=== PATIENT | female | born 1990 | race American Indian/Alaskan Native ===

== ENCOUNTER 2016-10-20 00:28 | Emergency (ER) | payer MEDICAID ==
[2016-10-20 00:35] VITALS: BP 135/74
[2016-10-20] MEDS ORDERED: Acetaminophen/HYDROcodone 325-5 MG Tab PO ONE (00:56)
[2016-10-20] MEDS ORDERED: Clindamycin HCl 150 MG Cap PO ONE (01:00)
--- NOTE | 2016-10-20 01:13 | ER ---
DATE SEEN: 10/20/2016 CHIEF COMPLAINT: Tooth pain. HISTORY OF PRESENT ILLNESS: This is a 25-year-old female complaining of tooth pain since last evening, moderate to severe on the right upper molar area. She has taken Tylenol at home with no relief. ALLERGIES: Morphine, codeine, tramadol, amoxicillin, and penicillin. REVIEW OF SYSTEMS: Negative for any fever, sore throat, or headache. PHYSICAL EXAMINATION: GENERAL: Pleasant. VITAL SIGNS: Blood pressure is normal and temp is 98.3. ORAL: Oral examination confirmed a cavity on the right upper molar. IMPRESSION: Tooth pain. PLAN: A prescription for clindamycin was given and hydrocodone one tablet every 6 hours p.r.n. for pain. /[id number] NIKI/PARISA
== END 2016-10-20 01:11 | disposition home or self-care (01) ==
LOC: FB.ED 00:28
DX: K08.89 Other specified disorders of teeth and supporting structures (principal); Z88.0 Allergy status to penicillin; Z88.1 Allergy status to other antibiotic agents; Z88.8 Allergy status to other drugs, medicaments and biological substances; Z88.5 Allergy status to narcotic agent
CPT/HCPCS: 99282; A9270

== ENCOUNTER 2016-10-21 18:17 | Emergency (ER) | payer MEDICAID ==
[2016-10-21] MEDS ORDERED: Acetaminophen/HYDROcodone 325-5 MG Tab PO ONE (19:21)
[2016-10-21 19:36] VITALS: BP 135/77
--- NOTE | 2016-11-22 23:17 | ER ---
DATE SEEN: 10/21/2016 TIME SEEN: The patient was seen at 2240 hours. CHIEF COMPLAINT: Toothache. HISTORY OF PRESENT ILLNESS: She has recurrent intermittent toothache. Tooth #15 is causing her problem. REVIEW OF SYSTEMS: Negative. No pharyngitis. No odynophagia. No dysphagia. No hot potato throat. No sore throat. No fever. No chills. No cervical adenopathy. No neck stiffness. No difficulty breathing, shortness of breath, chest pain, or abdominal discomfort. No diarrhea, nausea, vomiting, or muscle pain or rash. PHYSICAL EXAMINATION: VITAL SIGNS: Blood pressure 122/67, heart rate 75, respirations 15, oxygen saturation 100%, and temperature is 36.9 degrees centigrade. CONSTITUTIONAL: The patient is in moderate discomfort. HEENT: She has difficulty opening and closing her mouth, but no true trismus. She says it is painful to open her mouth. Gentle percussion of tooth #15 causes pain. Minimal gingival erythema. PLAN: The patient has been on clindamycin started yesterday 300 mg t.i.d. The patient is given a prescription for Vicodin 5/325 one q.4 hours p.r.n. pain 10 tablets. Follow up with doctor in 24 to 72 hours if markedly worse, otherwise see her doctor in a week. Needs followup with a dentist. /[id number] JUAN MANUEL/PARISA
--- NOTE | 2016-12-07 22:56 | ER ---
DATE SEEN: 10/21/2016 ADDENDUM: DIAGNOSIS: #15 tooth periapical abscess. /[id number] JUAN MANUEL/PARISA
== END 2016-10-21 19:34 | disposition home or self-care (01) ==
LOC: FB.ED 18:17
DX: K04.7 Periapical abscess without sinus (principal)
CPT/HCPCS: 99282; A9270

== ENCOUNTER 2016-11-17 14:05 | Emergency (ER) | payer MEDICAID ==
--- NOTE | 2016-11-17 14:31 | EDM.PDOC ---
ED HPI GENERAL MEDICAL PROBLEM - General Stated Complaint: TOOTH ACHE Time Seen by Provider: 11/17/16 14:05 Source of Information: Reports: Patient History Limitations: Reports: No Limitations - History of Present Illness INITIAL COMMENTS - FREE TEXT/NARRATIVE: 25 y.o.f. with toothache for several days, smoker, tylenol/motrin did not help. 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: Acetaminophen, NSAIDS - Related Data Allergies Allergy/AdvReac Type Severity Reaction Status Date / Time morphine Allergy Intermediate Hives Verified 10/21/16 18:40 codeine Allergy Unknown Nausea and Verified 10/21/16 18:40 Vomiting tramadol HCl [From Ultram] Allergy Unknown Nausea and Verified 10/21/16 18:40 Vomiting amoxicillin [Amoxicillin] Allergy Hives Verified 10/21/16 18:40 Penicillins Allergy Hives Verified 10/21/16 18:40 Home Meds: Home Meds Ibuprofen [Motrin] 400 mg PO ASDIRECTED PRN 04/23/15 [History] Acetaminophen [Tylenol Extra Strength] 1,500 mg PO Q6H 01/12/16 [History] Gabapentin [Neurontin] 300 mg PO TID #21 cap 01/12/16 [Rx] Clindamycin HCl 300 mg PO TID #30 capsule 10/20/16 [Rx] FLUoxetine [PROzac] 20 mg PO DAILY 10/20/16 [History] hydrOXYzine HCl [hydrOXYzine] 25 mg PO Q6HR 10/20/16 [History] Hydrocodone/Acetaminophen [Hydrocodon-Acetaminophen 5-325] 1 each PO Q4HR PRN # 10 tablet 10/21/16 [Rx] Hydrocodone/Acetaminophen [[place] 5-325 Tablet] 1 each PO Q4H PRN #6 tablet 11/17 [Rx] Sulfamethoxazole/Trimethoprim [Bactrim Ds Tablet] 1 each PO BID #20 tablet 11/17 [Rx] Past Medical History - Past Health History Medical/Surgical History: Denies 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 Social & Family History - Family History Family Medical History: Noncontributory - Tobacco Use Smoking Status *Q: Current Every Day Smoker Years of Tobacco use: 10 Packs/Tins Daily: 0.5 Used Tobacco, but Quit: Yes Month Tobacco Last Used: 08/03/14 Second Hand Smoke Exposure: Yes - Caffeine Use Caffeine Use: Reports: Coffee, Soda - Alcohol Use Days Per Week of Alcohol Use: 0 - Recreational Drug Use Recreational Drug Use: No ED ROS ENT - Review of Systems Review Of Systems: See Below Constitutional: Reports: No Symptoms HEENT: Reports: Other (toothache) Respiratory: Reports: No Symptoms Cardiovascular: Reports: No Symptoms Endocrine: Reports: No Symptoms GI/Abdominal: Reports: No Symptoms : Reports: No Symptoms Musculoskeletal: Reports: No Symptoms Skin: Reports: No Symptoms Neurological: Reports: No Symptoms Psychiatric: Reports: No Symptoms Hematologic/Lymphatic: Reports: No Symptoms Immunologic: Reports: No Symptoms ED EXAM, ENT - Physical Exam Exam: See Below Exam Limited By: No Limitations General Appearance: Alert, WD/WN, Mild Distress Eye Exam: Bilateral Eye: Normal Inspection Ears: Normal External Exam Nose: Normal Inspection Mouth/Throat: Other (poor dentition, gingivitis) Head: Atraumatic, Normocephalic Neck: Normal Inspection, Supple, Non-Tender Respiratory/Chest: No Respiratory Distress, Lungs Clear Cardiovascular: Normal Peripheral Pulses, Regular Rate, Rhythm, No Edema GI/Abdominal: Normal Bowel Sounds, Soft, Non-Tender, No Organomegaly (Female) Exam: Deferred Rectal (Female) Exam: Deferred Back: Normal Inspection, Full Range of Motion Extremities: Normal Inspection, Normal Range of Motion Neurological: Alert, Oriented, CN II-XII Intact, Normal Cognition, Normal Gait Psychiatric: Normal Affect, Normal Mood Skin: Warm, Dry, Intact, Normal Color, No Rash Lymphatic: No Adenopathy Course - Vital Signs Text/Narrative:: 25 y.o.f. with toothache for several days, smoker, tylenol/motrin did not help. No other acute medical issues PE: Poor dentition/gingivitis Impression: Poor dentition/gingivitis Plan: D/C with instruction Departure - Departure Time of Disposition: 14:31 Disposition: Home, Self-Care 01 Condition: good Clinical Impression: Tooth ache, Gingivitis - Discharge Information Prescriptions: Hydrocodone/Acetaminophen [[place] 5-325 Tablet] 1 each PO Q4H PRN #6 tablet PRN Reason: fore severe pain only Sulfamethoxazole/Trimethoprim [Bactrim Ds Tablet] 1 each PO BID #20 tablet Referrals: Donnie Gutierrez MD [Primary Care Provider] - Additional Instructions: Please quit tobacco use, please see a dentist, please take the meds as recommended, please come back if your symptoms get worse acutely
[2016-11-17 15:51] VITALS: BP 126/76
== END 2016-11-17 14:44 | disposition home or self-care (01) ==
LOC: FB.ED 14:05
DX: K05.10 Chronic gingivitis, plaque induced (principal); K08.89 Other specified disorders of teeth and supporting structures; F17.210 Nicotine dependence, cigarettes, uncomplicated; Z88.5 Allergy status to narcotic agent; Z88.0 Allergy status to penicillin; Z88.1 Allergy status to other antibiotic agents; Z79.899 Other long term (current) drug therapy
CPT/HCPCS: 99282

== ENCOUNTER 2016-11-18 13:10 | Emergency (ER) | payer MEDICAID ==
[2016-11-18 13:28] VITALS: BP 121/61
--- NOTE | 2016-11-18 14:00 | EDM.PDOC ---
ED HPI GENERAL MEDICAL PROBLEM - General Chief Complaint: General Stated Complaint: TOOTH PAIN Time Seen by Provider: 11/18/16 13:30 Source of Information: Reports: Patient History Limitations: Reports: No Limitations - History of Present Illness INITIAL COMMENTS - FREE TEXT/NARRATIVE: c/o tooth pain pt in ED yesterday with tooth pain, tx with Bactim and Lortab 5/325, still having pain yet no secondary evidence of infection has filled 6 controlled meds in 2017 alone, including gabapentin which pt did not tell RN or myself that she was taking pt has h/o of drug seeking behavior has apt with dentist in 2d there is a central cavity on tooth #31, will give additional coverage for anaerobes 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: Acetaminophen, NSAIDS, Other Medication(s) Right Upper Posterior Tooth/Teeth Pain Score (Numeric/FACES): 7 - Related Data Allergies Allergy/AdvReac Type Severity Reaction Status Date / Time morphine Allergy Intermediate Hives Verified 11/18/16 13:28 codeine Allergy Unknown Nausea and Verified 11/18/16 13:28 Vomiting tramadol HCl [From Ultram] Allergy Unknown Nausea and Verified 11/18/16 13:28 Vomiting amoxicillin [Amoxicillin] Allergy Hives Verified 11/18/16 13:28 Penicillins Allergy Hives Verified 11/18/16 13:28 Home Meds: Home Meds Ibuprofen [Motrin] 400 mg PO ASDIRECTED PRN 04/23/15 [History] Acetaminophen [Tylenol Extra Strength] 1,500 mg PO Q6H 01/12/16 [History] Hydrocodone/Acetaminophen [[place] 5-325 Tablet] 1 each PO Q4H PRN #6 tablet 11/17 [Rx] Sulfamethoxazole/Trimethoprim [Bactrim Ds Tablet] 1 each PO BID #20 tablet 11/17 [Rx] Gabapentin [Gabapentin] 300 mg PO QID 11/18/16 [History] Metronidazole [IJD: metroNIDAZOLE] 250 mg PO TID #21 tab 11/18/16 [Rx] Past Medical History - Past Health History Medical/Surgical History: Denies 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 Social & Family History - Family History Family Medical History: Noncontributory - Tobacco Use Smoking Status *Q: Current Every Day Smoker Years of Tobacco use: 10 Packs/Tins Daily: 0.1 Used Tobacco, but Quit: Yes Month Tobacco Last Used: 08/03/14 Second Hand Smoke Exposure: Yes - Caffeine Use Caffeine Use: Reports: Soda - Alcohol Use Days Per Week of Alcohol Use: 0 - Recreational Drug Use Recreational Drug Use: No ED ROS GENERAL - Review of Systems Review Of Systems: See Below Constitutional: Reports: No Symptoms HEENT: Reports: Other (dental pain) Respiratory: Reports: No Symptoms Cardiovascular: Reports: No Symptoms Endocrine: Reports: No Symptoms GI/Abdominal: Reports: No Symptoms : Reports: No Symptoms Musculoskeletal: Reports: No Symptoms Skin: Reports: No Symptoms Neurological: Reports: No Symptoms Psychiatric: Reports: No Symptoms Hematologic/Lymphatic: Reports: No Symptoms Immunologic: Reports: No Symptoms ED EXAM, GENERAL - Physical Exam Exam: See Below Exam Limited By: No Limitations General Appearance: Alert, WD/WN, No Apparent Distress Throat/Mouth: Other (tooth #31 with central cavity, no red or swell or tender on palpating gingiva, no face swell, no submandibular LNs, perhaps slight tender on percussing tooth) Course - Vital Signs Last Recorded V/S: Last Vital Signs Temp 36.8 C 11/18/16 13:21 Pulse 64 11/18/16 13:21 Resp 14 11/18/16 13:21 BP 121/61 11/18/16 13:21 Pulse Ox 100 11/18/16 13:21 Departure - Departure Time of Disposition: 13:58 Disposition: DC/Tfer to [facility] Preliminary Cause of *Q: sepsis & multi system organ failure Condition: good Clinical Impression: Dental caries extending into pulp, Dental abscess - Discharge Information Prescriptions: Metronidazole [IJD: metroNIDAZOLE] 250 mg PO TID #21 tab Instructions: Dental Abscess Forms: ED Department Discharge Additional Instructions: Continue current meds including Bactrim DS. Take ibuprofen 600 mg 4 times a day. For infection, add the antibiotic metronidazole 250 mg 2 tabs 3 times today, then 1 tab 3 times a day for 5 more days. See your dentist in 2 days. Use ice packs for 10 minutes every2 hours as needed.
== END 2016-11-18 14:06 | disposition home or self-care (01) ==
LOC: FB.ED 13:10
DX: K04.7 Periapical abscess without sinus (principal); K02.9 Dental caries, unspecified; F17.210 Nicotine dependence, cigarettes, uncomplicated; Z88.6 Allergy status to analgesic agent; Z88.8 Allergy status to other drugs, medicaments and biological substances; Z88.0 Allergy status to penicillin; Z88.1 Allergy status to other antibiotic agents; Z79.899 Other long term (current) drug therapy
CPT/HCPCS: 99282

== ENCOUNTER 2016-11-20 16:40 | Emergency (ER) | payer MEDICAID ==
[2016-11-20] MEDS ORDERED: Bupivacaine 0.5%/EPINEPHrine 1:200,000 50 ML MDV NERVRT ONE ×2 (17:07)
--- NOTE | 2016-11-20 17:18 | EDM.PDOC ---
ED HPI GENERAL MEDICAL PROBLEM - General Chief Complaint: ENT Problem Stated Complaint: TOOTH ACHE Time Seen by Provider: 11/20/16 17:05 Source of Information: Reports: Patient, Old Records History Limitations: Reports: No Limitations - History of Present Illness INITIAL COMMENTS - FREE TEXT/NARRATIVE: 25 yo female returns for dental pain. Has been here now 3 times in 4 days. States today that she is seeing a dentist tomorrow. Has claimed on her last visit that today was the day of her appt. Says she missed that due to an appt her son had in [place] for ADD. Is on metronidazole, Bactrim and is now out of her hydrocodone. No fever. Not getting relief from Ambesol OTC. 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: NSAIDS, Other Medication(s) (ATB's, [place], Ambesol) Rt upper front tooth Pain Score (Numeric/FACES): 10 - Related Data Allergies Allergy/AdvReac Type Severity Reaction Status Date / Time morphine Allergy Intermediate Hives Verified 11/20/16 16:51 codeine Allergy Unknown Nausea and Verified 11/20/16 16:51 Vomiting tramadol HCl [From Ultram] Allergy Unknown Nausea and Verified 11/20/16 16:51 Vomiting amoxicillin [Amoxicillin] Allergy Hives Verified 11/20/16 16:51 Penicillins Allergy Hives Verified 11/20/16 16:51 Home Meds: Home Meds Ibuprofen [Motrin] 400 mg PO ASDIRECTED PRN 04/23/15 [History] Acetaminophen [Tylenol Extra Strength] 1,500 mg PO Q6H 01/12/16 [History] Sulfamethoxazole/Trimethoprim [Bactrim Ds Tablet] 1 each PO BID #20 tablet 11/17 [Rx] Gabapentin [Gabapentin] 300 mg PO QID 11/18/16 [History] Metronidazole [IJD: metroNIDAZOLE] 250 mg PO TID #21 tab 11/18/16 [Rx] Past Medical History - Past Health History Medical/Surgical History: Denies Medical/Surgical History 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 Social & Family History - Family History Family Medical History: Noncontributory - Tobacco Use Smoking Status *Q: Never Smoker Years of Tobacco use: 10 Packs/Tins Daily: 0.1 Used Tobacco, but Quit: Yes Month Tobacco Last Used: 08/03/14 Second Hand Smoke Exposure: Yes - Caffeine Use Caffeine Use: Reports: Coffee, Soda - Alcohol Use Days Per Week of Alcohol Use: 0 - Recreational Drug Use Recreational Drug Use: No ED ROS ENT - Review of Systems Review Of Systems: See Below Constitutional: Reports: No Symptoms HEENT: Reports: Dental Pain Respiratory: Reports: No Symptoms Cardiovascular: Reports: No Symptoms GI/Abdominal: Reports: No Symptoms : Reports: No Symptoms Skin: Reports: No Symptoms Neurological: Reports: No Symptoms Psychiatric: Reports: No Symptoms ED EXAM, ENT - Physical Exam Exam: See Below Exam Limited By: No Limitations General Appearance: Alert, WD/WN, No Apparent Distress Eye Exam: Bilateral Eye: Normal Inspection, PERRL Ears: Normal External Exam, Normal Canal, Hearing Grossly Normal, Normal TMs Nose: Normal Inspection, Normal Mucousa, No Blood Mouth/Throat: Normal Gums, Normal Lips, Normal Oropharynx, Dental Pain, Dental Tenderness, Other (large cavity over R upper premolar, this is the painful tooth. ) Head: Atraumatic, Normocephalic Neck: Normal Inspection, Supple, Non-Tender, Full Range of Motion Respiratory/Chest: No Respiratory Distress, No Accessory Muscle Use Cardiovascular: Other Neurological: Alert, Oriented, CN II-XII Intact, Normal Cognition, No Motor/ Sensory Deficits Psychiatric: Normal Affect, Normal Mood Skin: Warm, Dry, Intact, Normal Color, No Rash Lymphatic: No Adenopathy Course - Vital Signs Text/Narrative:: Anesth locally with 0.5% bupivacaine with epi x 5 ml with good relief. Last Recorded V/S: Last Vital Signs Temp 36.7 C 11/20/16 16:40 Pulse 89 11/20/16 16:40 Resp 14 11/20/16 16:40 BP 134/67 11/20/16 16:40 Pulse Ox 100 11/20/16 16:40 - Orders/Labs/Meds Meds: Medications Discontinued Medications Generic Name Dose Route Start Last Admin Trade Name Vania PRN Reason Stop Dose Admin Bupivacaine HCl/Epinephrine Bitart 50 ml 11/20/16 17:07 Marcaine 0.5%/Epinephrine 1:200,000 NERVRT 11/20/16 17:08 ONETIME ONE Departure - Departure Time of Disposition: 17:45 Disposition: Home, Self-Care 01 Condition: good Clinical Impression: Pain due to dental caries Clinical Impression: (Ruled Out): Pain, dental - Discharge Information Referrals: Donnie Gutierrez MD [Primary Care Provider] - Forms: ED Department Discharge Additional Instructions: See your dentist [facility]. See your family doctor in the interim if pain meds are needed. May take ibuprofen 600 mg every 6 hrs and acetaminophen 1000 mg every 6hrs for pain relief. Continue metronidazole.
[2016-11-20 17:48] VITALS: BP 139/76
== END 2016-11-20 17:50 | disposition home or self-care (01) ==
LOC: FB.ED 16:40
DX: K02.9 Dental caries, unspecified (principal); Z87.891 Personal history of nicotine dependence; Z88.0 Allergy status to penicillin; Z88.1 Allergy status to other antibiotic agents; Z88.5 Allergy status to narcotic agent; Z88.6 Allergy status to analgesic agent; Z98.890 Other specified postprocedural states
CPT/HCPCS: 99282

== ENCOUNTER 2016-11-21 22:31 | Emergency (ER) | payer MEDICAID ==
[2016-11-21] MEDS ORDERED: Acetaminophen/HYDROcodone 325-10 MG Tab PO ONE ×2 (22:50→23:00)
[2016-11-21 22:51] VITALS: BP 135/65
--- NOTE | 2016-11-22 04:42 | ER ---
DATE SEEN: 11/21/2016 CHIEF COMPLAINT: Tooth pain. HISTORY OF PRESENT ILLNESS: A 25-year-old female with recurrent tooth pain which has been at least three times in the last one week. Pain is moderate to severe. It is in the right upper molar area. I saw on the 20 of October with similar symptoms. She is currently taking antibiotics. Denies fever or chills. On the , Dr. Chiu, did a nerve block which seemed to have helped for a few days. REVIEW OF SYSTEMS: No sore throat. No fever. No headaches. MEDICATIONS: Reviewed. ALLERGIES: Listed. PHYSICAL EXAMINATION: VITAL SIGNS: Blood pressure and temperature normal. HEENT: Head normal size. Neck is supple. Oropharynx is clear. Teeth revealed dental abscess on the right tooth #15. IMPRESSION: Dental abscess. PLAN: One tablet of hydrocodone every 8 hours, three tablets only. She is advised to see a dentist tomorrow. /[id number] NIKI/PARISA
== END 2016-11-21 23:00 | disposition home or self-care (01) ==
LOC: FB.ED 22:31
DX: K04.7 Periapical abscess without sinus (principal)
CPT/HCPCS: 99282; A9270

== ENCOUNTER 2016-12-09 15:31 | Emergency (ER) | payer MEDICAID ==
[2016-12-09 15:49] VITALS: BP 127/59
--- NOTE | 2016-12-11 17:37 | ER ---
DATE SEEN: 12/09/2016 HISTORY OF PRESENT ILLNESS: The patient is a 25-year-old female, who presents with right tooth pain. She states that yesterday, she was at [facility] and had one of her upper molars removed, right-sided. Today, she is having more pain in that region. She states she has been taking ibuprofen on a regular basis without benefit. She was also prescribed clindamycin, which she says she has been taking. She denies any fever, chills, nausea, vomiting, or diarrhea. MEDICATIONS: 1. Ibuprofen. 2. Clindamycin. 3. Klonopin. 4. Prozac. 5. Gabapentin. 6. Acetaminophen. ALLERGIES: Morphine, codeine, tramadol, amoxicillin, penicillin. PAST MEDICAL HISTORY: Carpal tunnel syndrome, dental pain, toothache, abdominal pain, back pain, and drug-seeking behavior. REVIEW OF SYSTEMS: RESPIRATORY: No shortness of breath. PHYSICAL EXAMINATION: VITAL SIGNS: Temperature 36.8, pulse 68, blood pressure 127/59, mean blood pressure 81, respiratory rate 18, and 100% on room air. GENERAL: She is in no apparent acute distress. HEENT: Oropharyngeal region shows loose tooth with minimal amount of bleeding from the socket. No abscess or significant swelling appreciated. Full range of motion in her mouth. NECK: Supple. ASSESSMENT: Dental decay, tooth pain. PLAN: Continue current medications. We will prescribe pain medication to help with her breakthrough pain. /[id number] MARIJA/PARISA
== END 2016-12-09 15:55 | disposition home or self-care (01) ==
LOC: FB.ED 15:31
DX: K02.9 Dental caries, unspecified (principal); Z88.5 Allergy status to narcotic agent; Z88.0 Allergy status to penicillin; Z88.1 Allergy status to other antibiotic agents; Z88.8 Allergy status to other drugs, medicaments and biological substances
CPT/HCPCS: 99282

== ENCOUNTER 2017-02-20 18:49 | Emergency (ER) | payer MEDICAID ==
[2017-02-20] MEDS ORDERED: Ketorolac 60 MG/2 ML SDV IM ONE (19:18)
--- NOTE | 2017-02-20 19:19 | EDM.PDOC ---
ED HPI GENERAL MEDICAL PROBLEM - General Chief Complaint: ENT Problem Stated Complaint: TOOTHACHE Time Seen by Provider: 02/20/17 19:10 Source of Information: Reports: Patient History Limitations: Reports: No Limitations - History of Present Illness INITIAL COMMENTS - FREE TEXT/NARRATIVE: 26 yo female returns again for dental pain. Has been her multiple times in recent months. 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: Reports: Other (see below) (none) - Related Data Allergies Allergy/AdvReac Type Severity Reaction Status Date / Time morphine Allergy Intermediate Hives Verified 12/09/16 15:38 codeine Allergy Unknown Nausea and Verified 12/09/16 15:38 Vomiting tramadol HCl [From Ultram] Allergy Unknown Nausea and Verified 12/09/16 15:38 Vomiting amoxicillin [Amoxicillin] Allergy Hives Verified 12/09/16 15:38 Penicillins Allergy Hives Verified 12/09/16 15:38 Home Meds: Home Meds Ibuprofen [Motrin] 400 mg PO ASDIRECTED PRN 04/23/15 [History] Acetaminophen [Tylenol Extra Strength] 1,500 mg PO Q6H 01/12/16 [History] Gabapentin [Gabapentin] 300 mg PO QID 11/18/16 [History] Acetaminophen/HYDROcodone [[place] 325-5 MG] 1 tab PO Q4H PRN #8 tab 12/09/16 [Rx] ClonazePAM [KlonoPIN] 0.5 mg PO BID 12/09/16 [History] FLUoxetine [PROzac] 40 mg PO DAILY 12/09/16 [History] Past Medical History - Past Health History Medical/Surgical History: Denies 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 Social & Family History - Family History Family Medical History: Noncontributory - Tobacco Use Smoking Status *Q: Current Every Day Smoker Years of Tobacco use: 10 Packs/Tins Daily: 1 Used Tobacco, but Quit: Yes Month Tobacco Last Used: 08/03/14 Second Hand Smoke Exposure: Yes - Caffeine Use Caffeine Use: Reports: None - Alcohol Use Days Per Week of Alcohol Use: 0 - Recreational Drug Use Recreational Drug Use: No ED ROS ENT - Review of Systems Review Of Systems: See Below Constitutional: Reports: No Symptoms HEENT: Reports: Dental Pain Respiratory: Reports: No Symptoms Cardiovascular: Reports: No Symptoms GI/Abdominal: Reports: No Symptoms Skin: Reports: No Symptoms Neurological: Reports: No Symptoms ED EXAM, ENT - Physical Exam Exam: See Below Exam Limited By: No Limitations General Appearance: Alert, WD/WN, No Apparent Distress Eye Exam: Bilateral Eye: Normal Inspection Ears: Normal Canal, Hearing Grossly Normal Nose: Normal Inspection, Normal Mucousa, No Blood Mouth/Throat: Normal Inspection, Normal Lips, Normal Oropharynx, Dental Pain, Other (Broken molar L mandible. ). No: Hoarse Voice Head: Atraumatic, Normocephalic Neck: Normal Inspection, Supple, Non-Tender Respiratory/Chest: No Respiratory Distress, No Accessory Muscle Use Cardiovascular: Regular Rate, Rhythm Neurological: Alert, Oriented, Normal Cognition, No Motor/Sensory Deficits Psychiatric: Normal Affect, Normal Mood Skin: Warm, Dry, Intact, Normal Color, No Rash Lymphatic: No Adenopathy Course - Vital Signs Text/Narrative:: Offered a nerve block, initially accepted the idea, later declined the offer. - Orders/Labs/Meds Meds: Medications Discontinued Medications Generic Name Dose Route Start Last Admin Trade Name Vania PRN Reason Stop Dose Admin Ketorolac Tromethamine 60 mg 02/20/17 19:18 Toradol IM 02/20/17 19:19 ONETIME ONE Departure - Departure Time of Disposition: 19:40 Disposition: Home, Self-Care 01 Condition: Good Clinical Impression: Pain, dental - Discharge Information Referrals: Donnie Gutierrez MD [Primary Care Provider] - Care Plan Goals: Take acetaminophen 1000 mg every 6 hrs as needed for pain relief. After 1 am tonight you may also add ibuprofen 600 mg every 6 hrs with food for added pain relief. See your dentist tomorrow for recheck.
[2017-02-20] MEDS ORDERED: Ketorolac 10 MG Tab PO ONE (19:28)
[2017-02-20 20:58] VITALS: BP 132/73
== END 2017-02-20 19:42 | disposition home or self-care (01) ==
LOC: FB.ED 18:49
DX: K08.89 Other specified disorders of teeth and supporting structures (principal); F17.210 Nicotine dependence, cigarettes, uncomplicated; Z88.5 Allergy status to narcotic agent; Z88.6 Allergy status to analgesic agent; Z88.1 Allergy status to other antibiotic agents; Z88.0 Allergy status to penicillin; Z79.899 Other long term (current) drug therapy; Z98.890 Other specified postprocedural states
CPT/HCPCS: 96372; 99282; A9270; J1885

== ENCOUNTER 2017-05-04 18:33 | Emergency (ER) | payer MEDICAID ==
[2017-05-04] MEDS ORDERED: Clindamycin HCl 150 MG Cap PO ONE (19:28)
[2017-05-04] MEDS ORDERED: Ketorolac 60 MG/2 ML SDV IM ONE (19:29)
--- NOTE | 2017-05-04 19:35 | EDM.PDOC ---
ED HPI GENERAL MEDICAL PROBLEM - General Chief Complaint: ENT Problem Stated Complaint: TOOTH PAIN Time Seen by Provider: 05/04/17 19:20 Source of Information: Reports: Patient History Limitations: Reports: No Limitations - History of Present Illness INITIAL COMMENTS - FREE TEXT/NARRATIVE: c/o tooth pain pain at #18 x several days, worse today, took APAP without benefit, packed it with Oragel white paste that did not help, no swelling, no f/c/d 9 visits to ED for dental pain in past 8m here, he is off work in 3d on Sunday and says he will take her to [facility] then Left Lower Tooth/Teeth Pain Score (Numeric/FACES): 10 - Related Data Allergies Allergy/AdvReac Type Severity Reaction Status Date / Time morphine Allergy Intermediate Hives Verified 05/04/17 19:04 codeine Allergy Unknown Nausea and Verified 05/04/17 19:04 Vomiting tramadol HCl [From Ultram] Allergy Unknown Nausea and Verified 05/04/17 19:04 Vomiting amoxicillin [Amoxicillin] Allergy Hives Verified 05/04/17 19:04 Penicillins Allergy Hives Verified 05/04/17 19:04 Home Meds: Home Meds Ibuprofen [Motrin] 400 mg PO ASDIRECTED PRN 04/23/15 [History] Acetaminophen [Tylenol Extra Strength] 1,500 mg PO Q6H 01/12/16 [History] Gabapentin [Gabapentin] 300 mg PO QID 11/18/16 [History] ClonazePAM [KlonoPIN] 0.5 mg PO BID 12/09/16 [History] FLUoxetine [PROzac] 40 mg PO DAILY 12/09/16 [History] Clindamycin HCl [Cleocin HCl] 300 mg PO TID #21 capsule 05/04/17 [Rx] Past Medical History - Past Health History Medical/Surgical History: Denies Medical/Surgical History HEENT History: Reports: Impaired Vision Other HEENT History: wears glasses 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 Social & Family History - Family History Family Medical History: Noncontributory - Tobacco Use Smoking Status *Q: Never Smoker Years of Tobacco use: 10 Packs/Tins Daily: 0.1 Used Tobacco, but Quit: Yes Month Tobacco Last Used: 08/03/14 Second Hand Smoke Exposure: No - Caffeine Use Caffeine Use: Reports: Soda - Alcohol Use Days Per Week of Alcohol Use: 0 - Recreational Drug Use Recreational Drug Use: No ED ROS GENERAL - Review of Systems Review Of Systems: See Below Constitutional: Reports: No Symptoms HEENT: Reports: Dental Pain Respiratory: Reports: No Symptoms Cardiovascular: Reports: No Symptoms Endocrine: Reports: No Symptoms GI/Abdominal: Reports: No Symptoms : Reports: No Symptoms Musculoskeletal: Reports: No Symptoms Skin: Reports: No Symptoms Neurological: Reports: No Symptoms Psychiatric: Reports: No Symptoms Hematologic/Lymphatic: Reports: No Symptoms Immunologic: Reports: No Symptoms ED EXAM, DIZZINESS - Physical Exam Exam: See Below Exam Limited By: No Limitations General Appearance: Alert, WD/WN, Mild Distress Throat/Mouth: Other (no swell of cheek or gingiva, no cervical LNs, tooth #18 with white packing, mild tender to palpation of tooth, mandible NT) Neck: Normal Inspection, Supple, Non-Tender Course - Vital Signs Last Recorded V/S: Last Vital Signs Temp 36.1 C 05/04/17 19:07 Pulse 100 05/04/17 19:07 Resp 20 05/04/17 19:07 BP 134/74 05/04/17 19:07 Pulse Ox 97 05/04/17 19:07 - Orders/Labs/Meds Orders: Active Orders 24 hr Category Date Time Status Clindamycin HCl [Cleocin] Med 05/04/17 19:28 Once 300 mg PO ONETIME ONE Ketorolac [Toradol] Med 05/04/17 19:29 Once 60 mg IM ONETIME ONE - Re-Assessments/Exams Free Text/Narrative Re-Assessment/Exam: 05/04/17 19:33 dental pain, possible abscess given large erosion centrally and medially on biting surface Departure - Departure Time of Disposition: 19:33 Disposition: Home, Self-Care 01 Condition: Good Clinical Impression: Pain due to dental caries - Discharge Information Prescriptions: Clindamycin HCl [Cleocin HCl] 300 mg PO TID #21 capsule Referrals: Donnie Gutierrez MD [Primary Care Provider] - Additional Instructions: For infection, take clindamycin 300 mg 1 capsule 3 times a day for 7 days. For pain and inflammation, take ibuprofen 200 mg 3 tabs and acetaminophen 500 mg 2 tabs 4 times a day for 2 days, longer if needed. Eat soft food. Chew on the opposite side of the mouth. Use cool food and liquids. See your dentist in 3 days. - My Orders Last 24 Hours: My Active Orders 05/04/17 19:28 Clindamycin HCl [Cleocin] 300 mg PO ONETIME ONE 05/04/17 19:29 Ketorolac [Toradol] 60 mg IM ONETIME ONE - Assessment/Plan Last 24 Hours: My Active Orders 05/04/17 19:28 Clindamycin HCl [Cleocin] 300 mg PO ONETIME ONE 05/04/17 19:29 Ketorolac [Toradol] 60 mg IM ONETIME ONE
[2017-05-04 19:44] VITALS: BP 134/78
== END 2017-05-04 19:42 | disposition home or self-care (01) ==
LOC: FB.ED 18:33
DX: K02.9 Dental caries, unspecified (principal); Z87.891 Personal history of nicotine dependence; Z79.899 Other long term (current) drug therapy; Z88.5 Allergy status to narcotic agent; Z88.0 Allergy status to penicillin; Z88.1 Allergy status to other antibiotic agents
CPT/HCPCS: 96372; 99282; A9270; J1885

== ENCOUNTER 2017-06-17 15:57 | Emergency (ER) | payer MEDICAID ==
--- NOTE | 2017-06-17 16:06 | EDM.PDOC ---
ED HPI GENERAL MEDICAL PROBLEM - General Stated Complaint: RASH ON HAND, LEGS AND FACE FROM FIBERGLASS Time Seen by Provider: 06/17/17 15:57 Source of Information: Reports: Patient - Related Data Allergies Allergy/AdvReac Type Severity Reaction Status Date / Time morphine Allergy Intermediate Hives Verified 06/17/17 16:16 codeine Allergy Unknown Nausea and Verified 06/17/17 16:16 Vomiting tramadol HCl [From Ultram] Allergy Unknown Nausea and Verified 06/17/17 16:16 Vomiting amoxicillin [Amoxicillin] Allergy Hives Verified 06/17/17 16:16 Penicillins Allergy Hives Verified 06/17/17 16:16 Home Meds: Home Meds Ibuprofen [Motrin] 400 mg PO ASDIRECTED PRN 04/23/15 [History] Acetaminophen [Tylenol Extra Strength] 1,500 mg PO Q6H 01/12/16 [History] Gabapentin [Gabapentin] 300 mg PO QID 11/18/16 [History] ClonazePAM [KlonoPIN] 0.5 mg PO BID 12/09/16 [History] FLUoxetine [PROzac] 40 mg PO DAILY 12/09/16 [History] Past Medical History - Past Health History Medical/Surgical History: Denies Medical/Surgical History HEENT History: Reports: Impaired Vision Other 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 Social & Family History - Family History Family Medical History: Noncontributory - Tobacco Use Smoking Status *Q: Never Smoker Years of Tobacco use: 10 Packs/Tins Daily: 0.1 Used Tobacco, but Quit: Yes Month Tobacco Last Used: 08/03/14 Second Hand Smoke Exposure: No - Caffeine Use Caffeine Use: Reports: Soda - Alcohol Use Days Per Week of Alcohol Use: 0 - Recreational Drug Use Recreational Drug Use: No Course - Vital Signs Text/Narrative:: Impression: Urticaria Last Recorded V/S: Last Vital Signs Temp 36.7 C 06/17/17 16:00 Pulse 108 H 06/17/17 16:00 Resp 18 06/17/17 16:00 BP 133/75 06/17/17 16:00 Pulse Ox 100 06/17/17 16:00 Departure - Departure Time of Disposition: 16:04 Disposition: Home, Self-Care 01 Condition: Good Clinical Impression: Urticaria - Discharge Information Instructions: Rash, Hives, [id number] Referrals: Donnie Gutierrez MD [Primary Care Provider] - Additional Instructions: Please take Vistaril as recommended, please increase water intake, please f/u, come back if your symptoms get worse acutely
[2017-06-17 16:43] VITALS: BP 132/76
--- NOTE | 2017-06-17 16:53 | EDM.PDOC ---
ED HPI GENERAL MEDICAL PROBLEM - General Chief Complaint: Skin Complaint Stated Complaint: RASH ON HAND, LEGS AND FACE FROM FIBERGLASS Time Seen by Provider: 06/17/17 15:57 Source of Information: Reports: Patient History Limitations: Reports: No Limitations - History of Present Illness INITIAL COMMENTS - FREE TEXT/NARRATIVE: 26 y.o.w.f came to to the ed 2 days after she was exposed to fiber glass. Pt took Benadryl with little improvement. No N/V/D, no SOB. 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) - Related Data Allergies Allergy/AdvReac Type Severity Reaction Status Date / Time morphine Allergy Intermediate Hives Verified 06/17/17 16:16 codeine Allergy Unknown Nausea and Verified 06/17/17 16:16 Vomiting tramadol HCl [From Ultram] Allergy Unknown Nausea and Verified 06/17/17 16:16 Vomiting amoxicillin [Amoxicillin] Allergy Hives Verified 06/17/17 16:16 Penicillins Allergy Hives Verified 06/17/17 16:16 Home Meds: Home Meds Ibuprofen [Motrin] 400 mg PO ASDIRECTED PRN 04/23/15 [History] Acetaminophen [Tylenol Extra Strength] 1,500 mg PO Q6H 01/12/16 [History] Gabapentin [Gabapentin] 300 mg PO QID 11/18/16 [History] ClonazePAM [KlonoPIN] 0.5 mg PO BID 12/09/16 [History] FLUoxetine [PROzac] 40 mg PO DAILY 12/09/16 [History] Past Medical History - Past Health History Medical/Surgical History: Denies Medical/Surgical History HEENT History: Reports: Impaired Vision Other HEENT History: 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 Social & Family History - Family History Family Medical History: Noncontributory - Tobacco Use Smoking Status *Q: Never Smoker Years of Tobacco use: 10 Packs/Tins Daily: 0.1 Used Tobacco, but Quit: Yes Month Tobacco Last Used: 08/03/14 Second Hand Smoke Exposure: No - Caffeine Use Caffeine Use: Reports: Coffee, Soda, Tea - Alcohol Use Days Per Week of Alcohol Use: 0 - Recreational Drug Use Recreational Drug Use: No ED ROS GENERAL - Review of Systems Review Of Systems: See Below Constitutional: Reports: No Symptoms HEENT: Reports: No Symptoms Respiratory: Reports: No Symptoms Cardiovascular: Reports: No Symptoms Endocrine: Reports: No Symptoms GI/Abdominal: Reports: No Symptoms : Reports: No Symptoms Musculoskeletal: Reports: No Symptoms Skin: Reports: Urticaria Neurological: Reports: No Symptoms Psychiatric: Reports: No Symptoms Hematologic/Lymphatic: Reports: No Symptoms Immunologic: Reports: No Symptoms ED EXAM, SKIN/RASH Exam: See Below Exam Limited By: No Limitations General Appearance: Alert, WD/WN, Mild Distress, Obese Eye Exam: Bilateral Eye: Normal Inspection Ears: Normal External Exam Nose: Normal Inspection Throat/Mouth: Normal Inspection Head: Atraumatic, Normocephalic Neck: Normal Inspection, Supple, Non-Tender, Full Range of Motion Respiratory/Chest: No Respiratory Distress, Lungs Clear, Normal Breath Sounds, No Accessory Muscle Use Cardiovascular: Normal Peripheral Pulses, Regular Rate, Rhythm, No Edema, No JVD Peripheral Pulses: 1+: Radial (R) GI/Abdominal: Normal Bowel Sounds, Soft (Female) Exam: Deferred Rectal (Female) Exam: Deferred Back Exam: Normal Inspection, Full Range of Motion Extremities: Normal Inspection, Normal Range of Motion, Non-Tender, No Pedal Edema Neurological: Alert, Oriented, CN II-XII Intact, Normal Cognition, Normal Gait, Normal Reflexes, No Motor/Sensory Deficits Psychiatric: Normal Affect, Normal Mood Skin: Rash (urticaria) Location, Skin: Generalized Characteristics: Urticarial Lymphatic: No Adenopathy Course - Vital Signs Text/Narrative:: 26 y.o.w.f came to to the ed 2 days after she was exposed to fiber glass. Pt took Benadryl with little improvement. No N/V/D, no SOB. No other acute medical issues BP 137/75 RR 18 Pulse ox 100% temp 36.7 PE: urticarial rash Impression: Urticaria Tx: vistaril to tke home. Pt has no ride. Plan: D/C with instructions Last Recorded V/S: Last Vital Signs Temp 36.8 C 06/17/17 16:40 Pulse 102 H 06/17/17 16:40 Resp 16 06/17/17 16:40 BP 132/76 06/17/17 16:40 Pulse Ox 100 06/17/17 16:40 Departure - Departure Time of Disposition: 16:47 Disposition: Home, Self-Care 01 Clinical Impression: Urticaria - Discharge Information Instructions: Rash, Hives, [id number] Referrals: Donnie Gutierrez MD [Primary Care Provider] - Forms: ED Department Discharge Additional Instructions: Please take Vistaril as recommended, please increase water intake, please f/u, come back if your symptoms get worse acutely
== END 2017-06-17 16:40 | disposition home or self-care (01) ==
LOC: FB.ED 15:57
DX: L50.9 Urticaria, unspecified (principal); F32.9 Major depressive disorder, single episode, unspecified; Z88.5 Allergy status to narcotic agent; Z88.1 Allergy status to other antibiotic agents; Z88.0 Allergy status to penicillin; Z79.899 Other long term (current) drug therapy
CPT/HCPCS: 99282; A9270

== ENCOUNTER 2017-09-12 11:47 | Emergency (ER) | payer MEDICAID ==
[2017-09-12 12:35] VITALS: BP 131/76
--- NOTE | 2017-09-12 12:55 | EDM.PDOC ---
ED HPI GENERAL MEDICAL PROBLEM - General Chief Complaint: General Stated Complaint: DENTAL PAIN Time Seen by Provider: 09/12/17 12:35 Source of Information: Reports: Patient History Limitations: Reports: No Limitations - History of Present Illness INITIAL COMMENTS - FREE TEXT/NARRATIVE: Ning reports pain in the L upper maxillae following dental extraction of molar in [place] yesterday. She reports throbbing pain, minimal bleeding, and no swelling. She has tried Ibuprofen and Tylenol for pain relief this am. She has not called the DDS or seen her PCP. Tooth/Teeth Pain Score (Numeric/FACES): 8 - Related Data Allergies Allergy/AdvReac Type Severity Reaction Status Date / Time morphine Allergy Intermediate Hives Verified 09/12/17 12:31 codeine Allergy Unknown Nausea and Verified 09/12/17 12:31 Vomiting tramadol HCl [From Ultram] Allergy Unknown Nausea and Verified 09/12/17 12:31 Vomiting amoxicillin [Amoxicillin] Allergy Hives Verified 09/12/17 12:31 Penicillins Allergy Hives Verified 09/12/17 12:31 Home Meds: Home Meds Ibuprofen [Motrin] 400 mg PO ASDIRECTED PRN 04/23/15 [History] Acetaminophen [Tylenol Extra Strength] 1,500 mg PO Q6H 01/12/16 [History] Gabapentin [Gabapentin] 300 mg PO QID 11/18/16 [History] ClonazePAM [KlonoPIN] 0.5 mg PO BID 12/09/16 [History] PARoxetine HCl [Paroxetine HCl] 10 mg PO DAILY 09/12/17 [History] buPROPion [Wellbutrin] 75 mg PO DAILY 09/12/17 [History] Past Medical History - Past Health History Medical/Surgical History: Denies Medical/Surgical History HEENT History: Reports: Impaired Vision, Other (See Below) Other HEENT History: 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 Social & Family History - Family History Family Medical History: Noncontributory - Tobacco Use Smoking Status *Q: Never Smoker Years of Tobacco use: 10 Packs/Tins Daily: 0.1 Used Tobacco, but Quit: Yes Month/Year Tobacco Last Used: 08/03/14 Second Hand Smoke Exposure: No - Caffeine Use Caffeine Use: Reports: Soda, Tea - Alcohol Use Days Per Week of Alcohol Use: 0 - Recreational Drug Use Recreational Drug Use: No ED ROS GENERAL - Review of Systems Review Of Systems: ROS reveals no pertinent complaints other than HPI. ED EXAM, GENERAL - Physical Exam Exam: See Below Exam Limited By: No Limitations General Appearance: Alert, WD/WN, Mild Distress, Obese Eye Exam: Bilateral Eye: EOMI, Normal Inspection, PERRL Nose: Normal Inspection Throat/Mouth: Normal Lips, Other (#15 molar missing with exposed dry socket and some clot fragments present; minimal gingival swelling) Head: Normocephalic Neck: Normal Inspection, Supple, Non-Tender, Full Range of Motion Respiratory/Chest: Lungs Clear Cardiovascular: Regular Rate, Rhythm Neurological: Alert, Oriented, CN II-XII Intact, No Motor/Sensory Deficits Psychiatric: Normal Affect, Normal Mood Skin Exam: Warm, Dry Lymphatic: No Adenopathy Course - Vital Signs Text/Narrative:: I offered Ning Toradol IM, and she refused. I suggested oil of cloves with cotton pledget into dry socket for management, and she will consider. She was advised to contact DDS regarding other managment if desired. Patient expressed understanding of recommendations. Last Recorded V/S: Last Vital Signs Temp 36.5 C 09/12/17 12:34 Pulse 102 H 09/12/17 12:34 Resp 18 09/12/17 12:34 BP 131/76 09/12/17 12:34 Pulse Ox 100 09/12/17 12:34 Departure - Departure Time of Disposition: 12:55 Disposition: Home, Self-Care 01 Condition: Fair Clinical Impression: Dry socket - Discharge Information Referrals: Donnie Gutierrez MD [Primary Care Provider] - - Problem List & Annotations (1) Dry socket SNOMED Code(s): 35266597 Code(s): M27.3 - ALVEOLITIS OF JAWS Status: Acute Current Visit: Yes Annotation/Comment:: I suggested oil of cloves with cottong pledget, patient will consider. She refused Toradol IM. - Problem List Review Problem List Initiated/Reviewed/Updated: Yes - Assessment/Plan Plan: Follow up with DDS.
== END 2017-09-12 13:05 | disposition home or self-care (01) ==
LOC: FB.ED 11:47
DX: M27.3 Alveolitis of jaws (principal); F41.9 Anxiety disorder, unspecified; F32.9 Major depressive disorder, single episode, unspecified; Z88.5 Allergy status to narcotic agent; Z88.0 Allergy status to penicillin; Z88.1 Allergy status to other antibiotic agents; Z79.899 Other long term (current) drug therapy
CPT/HCPCS: 99283

== ENCOUNTER 2017-10-07 10:30 | Emergency (ER) | payer MEDICAID ==
[2017-10-07] MEDS ORDERED: Ketorolac 60 MG/2 ML SDV IM ONE (10:48)
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
[2017-10-07 12:40] VITALS: BP 117/79
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
== END 2017-10-07 12:35 | disposition home or self-care (01) ==
LOC: FB.ED 10:30
DX: S63.501A Unspecified sprain of right wrist, initial encounter (principal); S00.83XA Contusion of other part of head, initial encounter; S70.311A Abrasion, right thigh, initial encounter; F41.9 Anxiety disorder, unspecified; F32.9 Major depressive disorder, single episode, unspecified; F17.210 Nicotine dependence, cigarettes, uncomplicated; Z88.5 Allergy status to narcotic agent; Z88.1 Allergy status to other antibiotic agents; Z88.0 Allergy status to penicillin; Z79.899 Other long term (current) drug therapy; W01.198A Fall on same level from slipping, tripping and stumbling with subsequent striking against other object, initial encounter
CPT/HCPCS: 29125; 70450; 72125; 73090; 73130; 96372; 99283; A9270; J1885

== ENCOUNTER 2017-10-07 16:48 | Emergency (ER) | payer MEDICAID ==
[2017-10-07 17:04] VITALS: BP 113/57
[2017-10-07] MEDS ORDERED: Acetaminophen/oxyCODONE 325-5 MG Tab PO ONE (17:08)
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
== END 2017-10-07 17:12 | disposition home or self-care (01) ==
LOC: FB.ED 16:48
DX: M25.531 Pain in right wrist (principal); F17.210 Nicotine dependence, cigarettes, uncomplicated; Z88.5 Allergy status to narcotic agent; Z88.1 Allergy status to other antibiotic agents; Z79.899 Other long term (current) drug therapy; W19.XXXA Unspecified fall, initial encounter
CPT/HCPCS: 99283; A9270

== ENCOUNTER 2017-10-11 20:15 | Emergency (ER) | payer MEDICAID ==
[2017-10-11] MEDS ORDERED: Acetaminophen/HYDROcodone 325-5 MG Tab PO ONE (20:43)
[2017-10-11 21:26] VITALS: BP 126/68
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
== END 2017-10-11 20:55 | disposition home or self-care (01) ==
LOC: FB.ED 20:15
DX: S70.12XA Contusion of left thigh, initial encounter (principal); M79.641 Pain in right hand; V89.2XXA Person injured in unspecified motor-vehicle accident, traffic, initial encounter
CPT/HCPCS: 99283; A9270

== ENCOUNTER 2018-03-30 19:59 | Emergency (ER) | payer MEDICAID ==
[2018-03-30] MEDS ORDERED: Acetaminophen/HYDROcodone 325-5 MG Tab PO ONE (20:38)
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
[2018-03-31 03:45] VITALS: BP 137/65
== END 2018-03-30 20:50 | disposition home or self-care (01) ==
LOC: FB.ED 19:59
DX: K03.81 Cracked tooth (principal); F17.210 Nicotine dependence, cigarettes, uncomplicated; F32.9 Major depressive disorder, single episode, unspecified; F41.9 Anxiety disorder, unspecified; Z88.5 Allergy status to narcotic agent; Z88.1 Allergy status to other antibiotic agents; Z88.0 Allergy status to penicillin
CPT/HCPCS: 99282; A9270

== ENCOUNTER 2018-03-31 14:27 | Emergency (ER) | payer MEDICAID ==
[2018-03-31 15:43] VITALS: BP 161/79
--- NOTE | 2018-04-05 18:33 | EDM.PDOC ---
ED HPI GENERAL MEDICAL PROBLEM - General Chief Complaint: General Stated Complaint: TOOTH PAIN Time Seen by Provider: 03/31/18 14:30 Source of Information: Reports: Patient History Limitations: Reports: No Limitations - History of Present Illness INITIAL COMMENTS - FREE TEXT/NARRATIVE: She was seen earlier today for #29 anterior cusp fracture however tooth. She was to get hydrocodone but she failed to get prescription filled she has pain and recurrent place. She needs a prescription for pain medicines. 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: hydrocodone tooth Pain Score (Numeric/FACES): 10 - Related Data Allergies Allergy/AdvReac Type Severity Reaction Status Date / Time morphine Allergy Intermediate Hives Verified 03/31/18 04:32 codeine Allergy Unknown Nausea and Verified 03/31/18 04:32 Vomiting tramadol HCl [From Ultram] Allergy Unknown Nausea and Verified 03/31/18 04:32 Vomiting amoxicillin [Amoxicillin] Allergy Hives Verified 03/31/18 04:32 Penicillins Allergy Hives Verified 03/31/18 04:32 Home Meds: Home Meds Ibuprofen [Motrin] 400 mg PO ASDIRECTED PRN 04/23/15 [History] Acetaminophen [Tylenol Extra Strength] 1,500 mg PO Q6H 01/12/16 [History] Gabapentin 600 mg PO QID 11/18/16 [History] ClonazePAM [KlonoPIN] 0.5 mg PO BID 12/09/16 [History] PARoxetine HCl [Paroxetine HCl] 10 mg PO DAILY 09/12/17 [History] Hydrocodone/Acetaminophen [Hydrocodon-Acetaminophen 5-325] 1 each PO Q4HR PRN # 16 tablet 03/30/18 [Rx] buPROPion HCl [Wellbutrin Xl] 300 mg PO DAILY 03/31/18 [History] Past Medical History - Past Health History Medical/Surgical History: Denies Medical/Surgical History HEENT History: Reports: Impaired Vision, Other (See Below) Other HEENT History: wears glasses 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 Musculoskeletal Surgical History: Reports: Other (See Below) Other Musculoskeletal Surgeries/Procedures:: fatty cyst removed from back. Social & Family History - Family History Family Medical History: Noncontributory - Tobacco Use Smoking Status *Q: Current Every Day Smoker Years of Tobacco use: 10 Packs/Tins Daily: 1 - Caffeine Use Caffeine Use: Reports: None - Recreational Drug Use Recreational Drug Use: No ED ROS GENERAL - Review of Systems Review Of Systems: See Below Constitutional: Reports: No Symptoms HEENT: Reports: Dental Pain, Other Respiratory: Reports: No Symptoms Cardiovascular: Reports: No Symptoms Endocrine: Reports: No Symptoms GI/Abdominal: Reports: No Symptoms : Reports: No Symptoms Musculoskeletal: Reports: No Symptoms Skin: Reports: No Symptoms Neurological: Reports: No Symptoms Psychiatric: Reports: No Symptoms Hematologic/Lymphatic: Reports: No Symptoms Immunologic: Reports: No Symptoms ED EXAM, GENERAL - Physical Exam Exam: See Below Free Text/Narrative:: She has pain in the mesial anterior tooth 29 over cusp Exam Limited By: No Limitations General Appearance: Alert, Moderate Distress Eye Exam: Bilateral Eye: Normal Inspection, PERRL Ears: Normal External Exam, Normal Canal, Normal TMs Ear Exam: Bilateral Ear: Auricle Normal, Canal Normal, TM normal Nose: Normal Inspection Throat/Mouth: Other (Fracture anterior mesial in the MAINOR cusp of the 29th tooth molar.) Head: Atraumatic, Normocephalic Neck: Normal Inspection Respiratory/Chest: No Respiratory Distress Cardiovascular: Normal Peripheral Pulses Peripheral Pulses: 1+: Radial (L), Radial (R) GI/Abdominal: Normal Bowel Sounds, Soft, Non-Tender, No Organomegaly, No Distention (Female) Exam: Deferred Rectal (Female) Exam: Deferred Back Exam: Normal Inspection Extremities: Normal Inspection Neurological: Other (No needle tracks in her antecubital fossa) Psychiatric: Normal Affect Skin Exam: Warm Lymphatic: No Adenopathy Course - Vital Signs Last Recorded V/S: Last Vital Signs Temp 36.6 C 03/31/18 14:30 Pulse 70 03/31/18 14:30 Resp 20 03/31/18 14:30 BP 161/79 H 03/31/18 14:30 Pulse Ox 100 03/31/18 14:30 Departure - Departure Time of Disposition: 14:35 (He shouldn't have had a prescription filled consequence he came back for pain medicine. She was given 1 dose of hydrocodone) Disposition: Home, Self-Care 01 Condition: Good Clinical Impression: Tooth pain - Discharge Information *PRESCRIPTION DRUG MONITORING PROGRAM REVIEWED*: Not Applicable *COPY OF PRESCRIPTION DRUG MONITORING REPORT IN PATIENT SONI: Not Applicable Referrals: Donnie Gutierrez MD [Primary Care Provider] - Forms: ED Department Discharge Additional Instructions: you have legal restrictions on you narcotic use and I cannot prescribe any medicines other than the tylenol and the ibuprofen I prescribed yesterday. Since you did not want a dental injection for pain the best solution to your pain is dentist appointment
== END 2018-03-31 14:52 | disposition home or self-care (01) ==
LOC: FB.ED 14:27
DX: K03.81 Cracked tooth (principal); F17.210 Nicotine dependence, cigarettes, uncomplicated; Z79.899 Other long term (current) drug therapy; Z88.5 Allergy status to narcotic agent; Z88.1 Allergy status to other antibiotic agents; Z88.0 Allergy status to penicillin
CPT/HCPCS: 99282

== ENCOUNTER 2018-07-27 10:12 | Emergency (ER) | payer MEDICAID ==
--- NOTE | 2018-07-27 10:48 | EDM.PDOC ---
ED HPI GENERAL MEDICAL PROBLEM - General Chief Complaint: General Stated Complaint: BROKEN TOOTH Time Seen by Provider: 07/27/18 10:12 Source of Information: Reports: Patient, Family History Limitations: Reports: No Limitations - History of Present Illness INITIAL COMMENTS - FREE TEXT/NARRATIVE: 27 y.o.w.f came to the ed because of toothache. Pt is started her clindamycin yesterday. Pt is a smoker. No other acute medical issues. BP 114/39 Pulse 78 RR 18 Pulse ox 97 % on RA, Temp 36.8 Onset Date: 07/26/18 Onset Time: 08:00 Duration: Hour(s):, Intermittent, Waxing/Waning Location: Reports: Face Quality: Reports: Burning, Dull, Pressure, Same as Previous Episode, Throbbing Severity: Moderate Improves with: Reports: Medication Worsens with: Reports: None Context: Reports: Other (smoker) Associated Symptoms: Reports: Nausea/Vomiting, Other (diarrhea) - Related Data Allergies Allergy/AdvReac Type Severity Reaction Status Date / Time morphine Allergy Intermediate Hives Verified 07/27/18 10:26 codeine Allergy Unknown Nausea and Verified 07/27/18 10:26 Vomiting tramadol HCl [From Ultram] Allergy Unknown Nausea and Verified 07/27/18 10:26 Vomiting amoxicillin [Amoxicillin] Allergy Hives Verified 07/27/18 10:26 Penicillins Allergy Hives Verified 07/27/18 10:26 Home Meds: Home Meds Ibuprofen [Motrin] 800 mg PO Q6H PRN 04/23/15 [History] Acetaminophen [Tylenol Extra Strength] 1,500 mg PO Q6H PRN 01/12/16 [History] ClonazePAM [KlonoPIN] 0.5 mg PO BID PRN 12/09/16 [History] PARoxetine HCl [Paroxetine HCl] 10 mg PO DAILY 09/12/17 [History] buPROPion HCl [Wellbutrin Xl] 300 mg PO DAILY 03/31/18 [History] Gabapentin [Neurontin] 600 mg PO TID 06/28/18 [History] Acetaminophen/HYDROcodone [Windom 325-5 MG] 1 tab PO Q6H PRN #6 tablet 07/27/18 [ Rx] Past Medical History - Past Health History Medical/Surgical History: Denies Medical/Surgical History HEENT History: Reports: Impaired Vision, Other (See Below) Other HEENT History: wears glasses 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: , 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 Musculoskeletal Surgical History: Reports: Other (See Below) Other Musculoskeletal Surgeries/Procedures:: fatty cyst removed from back. Social & Family History - Family History Family Medical History: Noncontributory - Tobacco Use Smoking Status *Q: Current Every Day Smoker Years of Tobacco use: 10 Packs/Tins Daily: 0.5 - Caffeine Use Caffeine Use: Reports: Soda, Tea - Recreational Drug Use Recreational Drug Use: No ED ROS GENERAL - Review of Systems Review Of Systems: See Below Constitutional: Reports: No Symptoms HEENT: Reports: Dental Pain Respiratory: Reports: No Symptoms Cardiovascular: Reports: No Symptoms Endocrine: Reports: No Symptoms GI/Abdominal: Reports: No Symptoms : Reports: No Symptoms Musculoskeletal: Reports: No Symptoms Skin: Reports: No Symptoms Neurological: Reports: No Symptoms Psychiatric: Reports: No Symptoms Hematologic/Lymphatic: Reports: No Symptoms Immunologic: Reports: No Symptoms ED EXAM, GENERAL - Physical Exam Exam: See Below Exam Limited By: No Limitations General Appearance: Alert, WD/WN, Mild Distress Eye Exam: Bilateral Eye: Normal Inspection Ears: Normal External Exam Ear Exam: Bilateral Ear: Auricle Normal Nose: Normal Inspection, Normal Mucosa Throat/Mouth: Normal Inspection, Normal Lips, Normal Voice, No Airway Compromise , Other (poor dentitien) Head: Atraumatic, Normocephalic Neck: Normal Inspection, Supple, Non-Tender, Full Range of Motion Respiratory/Chest: No Respiratory Distress, Lungs Clear, Normal Breath Sounds, Chest Non-Tender Cardiovascular: Normal Peripheral Pulses, Regular Rate, Rhythm, No Edema, No Gallop, No Murmur, No Rub Peripheral Pulses: 1+: Brachial (L) GI/Abdominal: Normal Bowel Sounds, Soft, Non-Tender, No Organomegaly (Female) Exam: Deferred Rectal (Female) Exam: Deferred Back Exam: Normal Inspection, Full Range of Motion Extremities: Normal Inspection, Normal Range of Motion, Non-Tender, No Pedal Edema Neurological: Alert, Oriented, CN II-XII Intact, Normal Cognition, Normal Gait Psychiatric: Normal Affect, Normal Mood Skin Exam: Warm, Dry, Intact, Normal Color, No Rash Lymphatic: No Adenopathy Course - Vital Signs Text/Narrative:: 27 y.o.w.f came to the ed because of toothache. Pt is started her clindamycin yesterday. Pt is a smoker. No other acute medical issues. BP 114/39 Pulse 78 RR 18 Pulse ox 97 % on RA, Temp 36.8 PE: Obese f with decayed teeth, gingivitis, smoker Impression: Toothache, poor dentition, decay of tooth #29 and 30 Tx: Pt is on Clindamycin, Windom ^ as a prescription Reexam: Improved Plan: D/C with instructions Addendum at 12.01 pm Pt came back, stating here Pharmacist refused to give her the prescription. I called the pharmacist , who stated, the patient abused the system and she can use only one pharmacy and one provider. She left ED with her prescription Last Recorded V/S: Last Vital Signs Temp 36.6 C 07/27/18 10:29 Pulse Resp 18 07/27/18 10:29 BP 114/69 07/27/18 10:29 Pulse Ox 100 07/27/18 10:29 - Orders/Labs/Meds Meds: Medications Discontinued Medications Generic Name Dose Route Start Last Admin Trade Name Vania PRN Reason Stop Dose Admin Hydrocodone Bitart/Acetaminophen 1 tab 07/27/18 11:58 Windom 325-5 Mg PO 07/27/18 11:59 ONETIME ONE Departure - Departure Time of Disposition: 10:44 Disposition: Home, Self-Care 01 Condition: Good Clinical Impression: Tooth decay, Gingiva disorder - Discharge Information Prescriptions: Acetaminophen/HYDROcodone [Windom 325-5 MG] 1 tab PO Q6H PRN #6 tablet PRN Reason: for severe pain only Referrals: Donnie Gutierrez MD [Primary Care Provider] - Forms: ED Department Discharge Additional Instructions: Please cont your Abx, please take Windom for severe pain only,pleas f/u with your dentist as scheduled this Sunday, come back if your symptoms get worse acutely
[2018-07-27] MEDS ORDERED: Acetaminophen/HYDROcodone 325-5 MG Tab PO ONE (11:58)
[2018-07-27 14:44] VITALS: BP 111/66
== END 2018-07-27 10:57 | disposition home or self-care (01) ==
LOC: FB.ED 10:12
DX: K02.9 Dental caries, unspecified (principal); K06.9 Disorder of gingiva and edentulous alveolar ridge, unspecified; E66.9 Obesity, unspecified; F32.9 Major depressive disorder, single episode, unspecified; F41.9 Anxiety disorder, unspecified; F17.210 Nicotine dependence, cigarettes, uncomplicated; Z88.5 Allergy status to narcotic agent; Z88.1 Allergy status to other antibiotic agents; Z88.8 Allergy status to other drugs, medicaments and biological substances; Z88.0 Allergy status to penicillin
CPT/HCPCS: 99282; A9270

== ENCOUNTER → 2018-07-28 | Emergency (ER) | payer MEDICAID | LOC: FB.ED 16:24 | DX: Z53.21 Procedure and treatment not carried out due to patient leaving prior to being seen by health care provider (principal) ==

== ENCOUNTER 2018-10-03 16:34 | Emergency (ER) | payer MEDICAID ==
[2018-10-03] MEDS ORDERED: Acetaminophen/HYDROcodone 325-5 MG Tab PO ONE (17:07)
--- NOTE | 2018-10-03 17:09 | EDM.PDOC ---
ED HPI GENERAL MEDICAL PROBLEM - General Stated Complaint: TOOTH PAIN Time Seen by Provider: 10/03/18 16:34 Source of Information: Reports: Patient, Family History Limitations: Reports: No Limitations - History of Present Illness INITIAL COMMENTS - FREE TEXT/NARRATIVE: 27 y.o.f with a h/o drug seeking behavior, had her tooth pulled today. She is on a contract with pain meds and only Dr Pena is allowed to prescribe painmeds. who is no available because he is delivering a baby. Oxycodone is the only mes she can take. Pt denied any other acute medical issues. BP 116/65 RR 18 Pulse ox 98% on RA Temp 36.8 Pulse 100 Onset Date: 10/03/18 Onset Time: 09:00 Duration: Hour(s):, Intermittent Location: Reports: Face Quality: Reports: Dull, Pressure, Throbbing Severity: Moderate Improves with: Reports: Medication Worsens with: Reports: Movement Context: Reports: Other (pt has a h/o drug seeking behaviour. 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) L jaw Pain Score (Numeric/FACES): 10 - Related Data Allergies Allergy/AdvReac Type Severity Reaction Status Date / Time morphine Allergy Intermediate Hives Verified 10/03/18 17:09 codeine Allergy Unknown Nausea and Verified 10/03/18 17:09 Vomiting tramadol HCl [From Ultram] Allergy Unknown Nausea and Verified 10/03/18 17:09 Vomiting amoxicillin [Amoxicillin] Allergy Hives Verified 10/03/18 17:09 Penicillins Allergy Hives Verified 10/03/18 17:09 Home Meds: Home Meds Ibuprofen [Motrin] 800 mg PO Q6H PRN 04/23/15 [History] Acetaminophen [Tylenol Extra Strength] 1,500 mg PO Q6H PRN 01/12/16 [History] ClonazePAM [KlonoPIN] 0.5 mg PO BID PRN 12/09/16 [History] PARoxetine HCl [Paroxetine HCl] 10 mg PO DAILY 09/12/17 [History] buPROPion HCl [Wellbutrin Xl] 300 mg PO DAILY 03/31/18 [History] Gabapentin [Neurontin] 600 mg PO TID 06/28/18 [History] Acetaminophen/HYDROcodone [Keene 325-5 MG] 1 tab PO Q6H PRN #6 tablet 07/27/18 [ Rx] Past Medical History - Past Health History Medical/Surgical History: Denies Medical/Surgical History HEENT History: Reports: Impaired Vision, Other (See Below) Other HEENT History: wears glasses 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: , 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 (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 Below) 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 Musculoskeletal Surgical History: Reports: Other (See Below) Other Musculoskeletal Surgeries/Procedures:: fatty cyst removed from back. Social & Family History - Family History Family Medical History: Noncontributory - Caffeine Use Caffeine Use: Reports: Soda, Tea ED ROS ENT - Review of Systems Review Of Systems: See Below Constitutional: Reports: No Symptoms HEENT: Reports: Dental Pain Respiratory: Reports: No Symptoms Cardiovascular: Reports: No Symptoms Endocrine: Reports: No Symptoms GI/Abdominal: Reports: No Symptoms : Reports: No Symptoms Musculoskeletal: Reports: No Symptoms Skin: Reports: No Symptoms Neurological: Reports: No Symptoms Psychiatric: Reports: No Symptoms Hematologic/Lymphatic: Reports: No Symptoms Immunologic: Reports: No Symptoms ED EXAM, ENT - Physical Exam Exam: See Below Exam Limited By: No Limitations General Appearance: Alert, WD/WN, Mild Distress, Obese Eye Exam: Bilateral Eye: Normal Inspection Ears: Normal External Exam, Normal Canal Nose: Normal Inspection, Normal Mucousa, No Blood Mouth/Throat: Dental Pain, Dental Trauma (S/P Tooth #21 extraction) Head: Atraumatic, Normocephalic Neck: Normal Inspection, Supple, Non-Tender, Full Range of Motion Respiratory/Chest: No Respiratory Distress, Lungs Clear, Normal Breath Sounds, No Accessory Muscle Use Cardiovascular: Normal Peripheral Pulses, Regular Rate, Rhythm, No Edema, No Gallop, No JVD, No Murmur, No Rub GI/Abdominal: Normal Bowel Sounds, Soft, Non-Tender, No Organomegaly, No Distention, No Abnormal Bruit, No Mass, Pelvis Stable (Female) Exam: Deferred Rectal (Female) Exam: Deferred Back: Normal Inspection, Full Range of Motion Extremities: Normal Inspection, Normal Range of Motion, Non-Tender, No Pedal Edema, Normal Capillary Refill Neurological: Alert, Oriented, CN II-XII Intact, Normal Cognition, Normal Gait, Normal Reflexes, No Motor/Sensory Deficits Psychiatric: Normal Affect, Normal Mood Skin: Warm, Dry, Intact, Normal Color, No Rash Lymphatic: No Adenopathy Course - Vital Signs Text/Narrative:: 27 y.o.f with a h/o drug seeking behavior, had her tooth pulled today. She is on a contract with pain meds and only Dr Pena is allowed to prescribe painmeds. who is no available because he is delivering a baby. Oxycodone is the only mes she can take. Pt denied any other acute medical issues. BP 116/65 RR 18 Pulse ox 98% on RA Temp 36.8 Pulse 100 PE: 27 y.o.f with h/o drug seeking behavior, on a contact with Dr. Pena with pain meds. had the Tooth # 21 pulled today. Impression: Tooth pulled, narcotic seeking, Pt on pain contract with Dr. Pena Tx: oxycodone 1 tabl in the ED and 1 tabl to go Reexam: Pt was pain free on D/C Plan: D/C with instructions Last Recorded V/S: Last Vital Signs Temp 36.7 C 10/03/18 16:55 Pulse 100 10/03/18 16:55 Resp 18 10/03/18 16:55 BP 115/65 10/03/18 16:55 Pulse Ox 100 10/03/18 16:55 - Orders/Labs/Meds Meds: Medications Discontinued Medications Generic Name Dose Route Start Last Admin Trade Name Freq PRN Reason Stop Dose Admin Hydrocodone Bitart/Acetaminophen 1 tab 10/03/18 17:07 10/03/18 17:41 Keene 325-5 Mg PO 10/03/18 17:08 1 tab ONETIME ONE Administration Oxycodone HCl 10 mg 10/03/18 17:40 Oxycontin PO 10/03/18 17:41 ONETIME ONE Departure - Departure Time of Disposition: 17:41 Disposition: Home, Self-Care 01 Condition: Good Clinical Impression: H/O tooth extraction - Discharge Information Instructions: Acetaminophen; Hydrocodone tablets or capsules, Dental Extraction , [id number], Oxycodone extended-release tablets Referrals: Donnie Gutierrez MD [Primary Care Provider] - Forms: ED Department Discharge Additional Instructions: Please follow up with your regular MD in am for any pain meds to be given. Please follow up with your dentist for any dental issues
[2018-10-03] MEDS ORDERED: oxyCODONE ER 10 MG TAB.ER PO ONE (17:40)
[2018-10-03 20:41] VITALS: BP 124/78
== END 2018-10-03 18:02 | disposition home or self-care (01) ==
LOC: FB.ED 16:34
DX: K08.89 Other specified disorders of teeth and supporting structures (principal); Z76.5 Malingerer [conscious simulation]; F41.9 Anxiety disorder, unspecified; F32.9 Major depressive disorder, single episode, unspecified; Z79.899 Other long term (current) drug therapy; Z88.5 Allergy status to narcotic agent; Z88.1 Allergy status to other antibiotic agents; Z88.0 Allergy status to penicillin; Z88.6 Allergy status to analgesic agent; Z98.890 Other specified postprocedural states
CPT/HCPCS: 99282; A9270

== ENCOUNTER 2018-12-06 20:03 | Emergency (ER) | payer MEDICAID ==
--- NOTE | 2018-12-06 20:46 | EDM.PDOC ---
ED HPI GENERAL MEDICAL PROBLEM - General Chief Complaint: General Stated Complaint: TOOTHACHE Time Seen by Provider: 12/06/18 20:40 Source of Information: Reports: Patient History Limitations: Reports: No Limitations - History of Present Illness INITIAL COMMENTS - FREE TEXT/NARRATIVE: Patient presented with concern for pain in her left upper tooth which started approximately yesterday morning. She states that yesterday morning when she woke up her lip was swollen, she's been putting clove oil in the area and tried some "refilling she has at home but today it seemed to spread into her face. She has a history of partial tooth in that particular location and it has gotten infected before. Today she also noticed a bump the side of her face. Thinks she will be able to get into a dentist on Sunday as she goes to a clinic that often has walk in spaces available. No fever, chills or sweats, no other symptoms, no difficulty swallowing. The rest of her teeth and mouth feel okay, no recent upper respiratory tract infection. 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) Other Treatments FINAL DRESSING CUTTER: Tylenol and Naproxen Left upper mouth Pain Score (Numeric/FACES): 10 - Related Data Allergies Allergy/AdvReac Type Severity Reaction Status Date / Time morphine Allergy Intermediate Hives Verified 12/06/18 20:08 codeine Allergy Unknown Nausea and Verified 12/06/18 20:08 Vomiting tramadol HCl [From Ultram] Allergy Unknown Nausea and Verified 12/06/18 20:08 Vomiting amoxicillin [Amoxicillin] Allergy Hives Verified 12/06/18 20:08 Penicillins Allergy Hives Verified 12/06/18 20:08 Home Meds: Home Meds ClonazePAM [KlonoPIN] 0.5 mg PO BID PRN 12/09/16 [History] PARoxetine HCl [Paroxetine HCl] 10 mg PO DAILY 09/12/17 [History] buPROPion HCl [Wellbutrin Xl] 300 mg PO DAILY 03/31/18 [History] Gabapentin [Neurontin] 600 mg PO QID 06/28/18 [History] Clindamycin HCl 300 mg PO TID 7 Days #21 capsule 12/06/18 [Rx] Past Medical History - Past Health History Medical/Surgical History: Denies Medical/Surgical History HEENT History: Reports: Impaired Vision, Other (See Below) Other HEENT History: wears glasses Gastrointestinal History: Reports: None Genitourinary History: Reports: None COURT USHER History: Reports: , Other (See Below) Other COURT USHER History: pregnancies x 4 Musculoskeletal History: Reports: Other (See Below) Other Musculoskeletal History: back surgery Neurological History: Reports: Headaches, Chronic Psychiatric History: Reports: Anxiety, Depression Other Psychiatric History: hx ETOH abuse, has been in tx for ETOH Endocrine/Metabolic History: Reports: Obesity/BMI 30+ - Infectious Disease History Infectious Disease History: Reports: Chicken Pox - Past Surgical History GI Surgical History: Reports: Appendectomy Female Surgical History: Reports: Section, Other (See Below) Other Female Surgeries/Procedures: x 4. Musculoskeletal Surgical History: Reports: Other (See Below) Other Musculoskeletal Surgeries/Procedures:: fatty cyst removed from back. Social & Family History - Family History Family Medical History: Noncontributory - Tobacco Use Smoking Status *Q: Current Every Day Smoker Years of Tobacco use: 15 Packs/Tins Daily: 0.5 - Caffeine Use Caffeine Use: Reports: Coffee, Energy Drinks, Soda, Tea - Alcohol Use Alcohol Use History: No - Recreational Drug Use Recreational Drug Use: No ED ROS GENERAL - Review of Systems Review Of Systems: ROS reveals no pertinent complaints other than HPI. ED EXAM, GENERAL - Physical Exam Exam: See Below Free Text/Narrative:: General: alert, pleasant not acutely distressed. Facial tenderness to palpation in the left frontal area just beside the nares. the left maxillary incisor is tender to touch. There is no obvious swelling in the gum region, but she does have some minimal visible swelling in the soft tissue in her face just above it. Mucus membranes moist, no cervical lymphadenopathy, heart regular, normal respirator effort. Course - Vital Signs Text/Narrative:: dental abcess - one dose of clindamycin given here as will not be able to go to pharmacy until morning. Start clindamycin for 7 days, followup with dentist next week as planned to address tooth problem. Discussed limits on OTC analgesics and other alternatives for pain control; all questions answered. She is in agreement with this plan. Last Recorded V/S: Last Vital Signs Temp 36.7 C 12/06/18 20:10 Pulse 84 12/06/18 20:10 Resp 20 12/06/18 20:10 BP 146/83 H 12/06/18 20:10 Pulse Ox 100 06/07/19 20:10 - Orders/Labs/Meds Orders: Active Orders 24 hr Category Date Time Status Clindamycin HCl [Cleocin] Med 12/06/18 23:00 Once 450 mg PO ONETIME ONE Medication Orders Clindamycin HCl (Cleocin) 450 mg PO ONETIME ONE Stop: 12/06/18 23:01 Meds: Medications Generic Name Dose Route Start Last Admin Trade Name Vania PRN Reason Stop Dose Admin Clindamycin HCl 450 mg 12/06/18 23:00 Cleocin PO 12/06/18 23:01 ONETIME ONE Departure - Departure Time of Disposition: 21:00 Disposition: Home, Self-Care 01 Condition: Good Clinical Impression: Dental abscess - Discharge Information *PRESCRIPTION DRUG MONITORING PROGRAM REVIEWED*: Not Applicable *COPY OF PRESCRIPTION DRUG MONITORING REPORT IN PATIENT SONI: Not Applicable Prescriptions: Clindamycin HCl 300 mg PO TID 7 Days #21 capsule Instructions: Dental Abscess Referrals: Donnie Gutierrez MD [Primary Care Provider] - Forms: ED Department Discharge Additional Instructions: continue with clove oil DO NOT TAKE MORE THAN THE RECOMMENDED TYLENOL DOSING due to risk of liver failure Naproxen is ok per bottle and drink lots of water to help with symptoms can use warm pack to help alleviate pain saltwater rinses are also helpful - My Orders Last 24 Hours: My Active Orders 12/06/18 23:00 Clindamycin HCl [Cleocin] 450 mg PO ONETIME ONE - Assessment/Plan Last 24 Hours: My Active Orders 12/06/18 23:00 Clindamycin HCl [Cleocin] 450 mg PO ONETIME ONE
[2018-12-06] MEDS ORDERED: Clindamycin HCl 150 MG Cap PO ONE ×2 (20:52→23:00)
[2018-12-06 21:31] VITALS: BP 130/76
== END 2018-12-06 21:01 | disposition home or self-care (01) ==
LOC: FB.ED 20:03
DX: K04.7 Periapical abscess without sinus (principal); F41.9 Anxiety disorder, unspecified; F17.210 Nicotine dependence, cigarettes, uncomplicated; F32.9 Major depressive disorder, single episode, unspecified; Z79.899 Other long term (current) drug therapy; Z88.1 Allergy status to other antibiotic agents; Z88.0 Allergy status to penicillin; Z88.5 Allergy status to narcotic agent
CPT/HCPCS: 99282; A9270

== ENCOUNTER 2019-07-29 16:44 | Emergency (ER) | payer MEDICAID ==
[2019-07-29] MEDS ORDERED: Acetaminophen/HYDROcodone 325-5 MG Tab PO ONE (16:45)
--- NOTE | 2019-07-29 17:22 | EDM.PDOC ---
ED HPI GENERAL MEDICAL PROBLEM - General Stated Complaint: TOOTH PAIN Time Seen by Provider: 07/29/19 17:20 Source of Information: Reports: Patient History Limitations: Reports: No Limitations - History of Present Illness INITIAL COMMENTS - FREE TEXT/NARRATIVE: 28-year-old female who reports has had some problems with [facility] for tooth for some time not really much pain and today she reports that the left upper tooth broke off and increased pain in the area that she rates as a 10/10 that is a throbbing and sharp pain that radiates up into her face and has caused her to have a headache. No vomiting. No fevers or chills. The air hitting the tooth seems to make the pain worse and it is worse with palpation in the area as well. No trouble breathing. No trouble swallowing. There are no other associated signs or symptoms. There are no other modifying factors. Onset: Today Duration: Getting Worse Location: Reports: Face (Left upper dental pain) Quality: Reports: Sharp, Throbbing Severity: Moderate (to severe) Improves with: Reports: None Worsens with: Reports: Other (Air hitting the area. Chewing. 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 - Related Data Allergies Allergy/AdvReac Type Severity Reaction Status Date / Time morphine Allergy Intermediate Hives Verified 07/29/19 17:14 codeine Allergy Unknown Nausea and Verified 07/29/19 17:14 Vomiting tramadol HCl [From Ultram] Allergy Unknown Nausea and Verified 07/29/19 17:14 Vomiting amoxicillin [Amoxicillin] Allergy Hives Verified 07/29/19 17:14 Penicillins Allergy Hives Verified 07/29/19 17:14 Home Meds: Home Meds ClonazePAM [KlonoPIN] 0.5 mg PO BID PRN 12/09/16 [History] PARoxetine HCl [Paroxetine HCl] 10 mg PO DAILY 09/12/17 [History] buPROPion HCl [Wellbutrin Xl] 300 mg PO DAILY 03/31/18 [History] Gabapentin [Neurontin] 600 mg PO QID 06/28/18 [History] Clindamycin HCl 300 mg PO TID 7 Days #21 capsule 12/06/18 [Rx] Acetaminophen/HYDROcodone [Velarde 325-5 MG] 1 - 2 tab PO Q6H PRN #10 tab [Rx] Clindamycin HCl 450 mg PO TID 10 Days #90 capsule 07/29/19 [Rx] Past Medical History HEENT History: Reports: Impaired Vision, Other (See Below) Other HEENT History: wears glasses 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 Musculoskeletal Surgical History: Reports: Other (See Below) Other Musculoskeletal Surgeries/Procedures:: fatty cyst removed from back. 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.) ED ROS ENT - Review of Systems Review Of Systems: See Below Constitutional: Reports: No Symptoms HEENT: Reports: Dental Pain Respiratory: Reports: No Symptoms Cardiovascular: Reports: No Symptoms GI/Abdominal: Reports: No Symptoms : Reports: No Symptoms Musculoskeletal: Reports: No Symptoms Skin: Reports: No Symptoms Neurological: Reports: Headache Hematologic/Lymphatic: Reports: No Symptoms Immunologic: Reports: No Symptoms ED EXAM, ENT - Physical Exam Exam: See Below Exam Limited By: No Limitations General Appearance: Alert, Moderate Distress, Obese Eye Exam: Bilateral Eye: EOMI, Normal Inspection Ears: Normal External Exam, Hearing Grossly Normal Nose: Normal Inspection, Normal Mucousa, No Blood Mouth/Throat: Dental Abcess, Dental Pain, Dental Tenderness, Gum Swelling Head: Atraumatic, Normocephalic Neck: Normal Inspection, Supple, Non-Tender, Full Range of Motion Respiratory/Chest: No Respiratory Distress, Lungs Clear, Normal Breath Sounds, No Accessory Muscle Use, Chest Non-Tender Cardiovascular: Normal Peripheral Pulses, Regular Rate, Rhythm, No Murmur GI/Abdominal: Normal Bowel Sounds, Soft, Non-Tender, No Mass Back: Normal Inspection Extremities: Normal Inspection, Normal Range of Motion, Non-Tender, No Pedal Edema, Normal Capillary Refill Neurological: Alert, Oriented, CN II-XII Intact, Normal Cognition, No Motor/ Sensory Deficits Skin: Warm, Dry, Intact, Normal Color, No Rash Course - Orders/Labs/Meds Meds: Medications Discontinued Medications Generic Name Dose Route Start Last Admin Trade Name Freq PRN Reason Stop Dose Admin Clindamycin HCl 450 mg 07/29/19 17:38 07/29/19 17:46 Cleocin PO 07/29/19 17:39 450 mg ONETIME ONE Administration - Re-Assessments/Exams Free Text/Narrative Re-Assessment/Exam: 07/29/19 17:30: Patient with cracked left upper incisor with dental abscess associated with it and gingival erythema. I will place the patient on ice and 450 by mouth 3 times a day days and I'll also give the patient a take home pack of hydrocodone 5/325 and another prescription of a small amount of hydrocodone 5 /325 and I have advised her to see a dentist as soon as she can arrange. Departure - Departure Time of Disposition: 17:35 Disposition: Home, Self-Care 01 Condition: Good Clinical Impression: Dental abscess, Dental caries, Pain, dental - Discharge Information Prescriptions: Acetaminophen/HYDROcodone [Velarde 325-5 MG] 1 - 2 tab PO Q6H PRN #10 tab PRN Reason: Moderate to severe pain Clindamycin HCl 450 mg PO TID 10 Days #90 capsule Instructions: Dental Abscess, [id number] Referrals: Donnie Gutierrez MD [Primary Care Provider] - Additional Instructions: You appear to have an infection associated with this left upper tooth. You will need to see a dentist as soon as you can arrange. Medication as prescribed ( clindamycin, hydrocodone 5/325). You may also take ibuprofen 800 mg by mouth every 8 hours as needed for pain. If you take the hydrocodone, you should not take Tylenol. When you are taking Tylenol you should only take 1000 mg by mouth every 6 hours maximum dose. Back to the emergency department for trouble swallowing, trouble breathing, unrelenting vomiting or any other concerning sign or symptom. Sepsis Event Note - Focused Exam Date Exam was Performed: 07/29/19 Time Exam was Performed: 18:29
[2019-07-29] MEDS ORDERED: Clindamycin HCl 150 MG Cap PO ONE (17:38)
[2019-07-29 19:44] VITALS: BP 140/73; PULSE 110
== END 2019-07-29 17:53 | disposition home or self-care (01) ==
LOC: FB.ED 16:44
DX: K04.7 Periapical abscess without sinus (principal); K02.9 Dental caries, unspecified; E66.9 Obesity, unspecified; F32.9 Major depressive disorder, single episode, unspecified; F41.9 Anxiety disorder, unspecified; F17.200 Nicotine dependence, unspecified, uncomplicated; Z88.5 Allergy status to narcotic agent; Z88.0 Allergy status to penicillin; Z68.41 Body mass index [BMI] 40.0-44.9, adult; Z79.899 Other long term (current) drug therapy
CPT/HCPCS: 99282; A9270

== ENCOUNTER 2019-08-11 18:32 | Emergency (ER) | payer MEDICAID ==
--- NOTE | 2019-08-11 18:43 | EDM.PDOC ---
ED HPI GENERAL MEDICAL PROBLEM - General Stated Complaint: CHEST PAIN Time Seen by Provider: 08/11/19 18:40 Source of Information: Reports: Patient History Limitations: Reports: No Limitations - History of Present Illness INITIAL COMMENTS - FREE TEXT/NARRATIVE: 28-year-old female with onset of left sided chest pain at approximately 5:30 PM today while she was walking. She reports that it is a tight and sharp pain that seems to wax and wane in intensity and radiates down her left arm. She rates the pain as a 7/10 now. She has had some nausea associated with it but no vomiting. She does feel that she is somewhat short of breath with this pain and she was hyperventilating when she arrived. She has had a cough and nasal congestion for the past 2-3 days. She does not feel that the pain is made worse with deep breath or cough. It is somewhat worse with palpation. She has had no hemoptysis. She has had a subjective fever. No abdominal pain. There are no other associated signs or symptoms. There are no other modifying factors. 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) (Nothing) - Related Data Allergies Allergy/AdvReac Type Severity Reaction Status Date / Time morphine Allergy Intermediate Hives, Verified 08/11/19 19:23 Nausea and Vomiting codeine Allergy Unknown Nausea and Verified 08/11/19 19:23 Vomiting tramadol HCl [From Ultram] Allergy Unknown Nausea and Verified 08/11/19 18:49 Vomiting amoxicillin [Amoxicillin] Allergy Hives Verified 08/11/19 18:49 Penicillins Allergy Hives Verified 08/11/19 18:49 Home Meds: Home Meds ClonazePAM [KlonoPIN] 0.5 mg PO BID PRN 12/09/16 [History] PARoxetine HCl [Paroxetine HCl] 10 mg PO BEDTIME 09/12/17 [History] buPROPion HCl [Wellbutrin Xl] 300 mg PO DAILY 09/30/18 [History] Gabapentin [Neurontin] 800 mg PO QID 08/11/19 [History] Past Medical History HEENT History: Reports: Impaired Vision, Other (See Below) Other HEENT History: wears glasses 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 (See Below) Other SHELL MOLDER History: pregnancies x 4 Musculoskeletal History: Reports: Back Pain, Chronic Other Musculoskeletal History: back surgery Neurological History: Reports: Headaches, Chronic Psychiatric History: Reports: Anxiety, Depression Other Psychiatric History: hx ETOH abuse, has been in tx for ETOH Endocrine/Metabolic History: Reports: Obesity/BMI 30+ - Infectious Disease History Infectious Disease History: Reports: Chicken Pox - Past Surgical History GI Surgical History: Reports: Appendectomy Female Surgical History: Reports: Section, Tubal Ligation, Other ( See Below) Other Female Surgeries/Procedures: x 4. Musculoskeletal Surgical History: Reports: Other (See Below) Other Musculoskeletal Surgeries/Procedures:: fatty cyst removed from back. 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 Denies: Hemoptysis Cardiovascular: Reports: Chest Pain (Left-sided), Lightheadedness Endocrine: Reports: No Symptoms GI/Abdominal: Reports: Nausea. Denies: Vomiting : Reports: No Symptoms Musculoskeletal: Reports: Arm Pain (Left arm pain) Skin: Reports: No Symptoms Neurological: Reports: No Symptoms Psychiatric: Reports: Anxiety Hematologic/Lymphatic: Reports: No Symptoms Immunologic: Reports: No Symptoms ED EXAM, GENERAL - Physical Exam Exam: See Below Exam Limited By: No Limitations General Appearance: Alert, Anxious, Moderate Distress (Appears quite anxious and is hyperventilating.), Obese Eye Exam: Bilateral Eye: EOMI, Normal Inspection, PERRL Ears: Normal External Exam, Hearing Grossly Normal Ear Exam: Bilateral Ear: Auricle Normal Nose: No Blood, Nasal Drainage Throat/Mouth: Normal Inspection, Normal Lips, Normal Oropharynx, Normal Voice, No Airway Compromise Head: Atraumatic, Normocephalic Neck: Normal Inspection, Supple, Non-Tender, Full Range of Motion Respiratory/Chest: Lungs Clear, Normal Breath Sounds, No Accessory Muscle Use, Other (Tender to palpation under left breast. She is hyperventilating. She has great air movement.). No: Rales, Rhonchi, Wheezing, Stridor Cardiovascular: Normal Peripheral Pulses, Regular Rate, Rhythm, No Edema, No Murmur Peripheral Pulses: 2+: Radial (L), Radial (R) GI/Abdominal: Normal Bowel Sounds, Soft, Non-Tender, No Mass, Other (Protuberant ) Back Exam: Normal Inspection, Full Range of Motion Extremities: Normal Range of Motion, Non-Tender, No Pedal Edema, Normal Capillary Refill Neurological: Alert, Oriented, CN II-XII Intact, Normal Cognition, No Motor/ Sensory Deficits Psychiatric: Anxious Skin Exam: Warm, Dry, Normal Color, Other (Multiple small sores on her arms and exposed chest and legs that appear to be "tick type sores".) EKG INTERPRETATION EKG Date: 08/11/19 Time: 18:40 Rhythm: NSR Rate (Beats/Min): 82 [place]: Normal P-Wave: Present QRS: Normal ST-T: Normal QT: Normal Comparison: NA - No Prior EKG EKG Interpretation Comments: Normal EKG Course - Vital Signs Last Recorded V/S: Last Vital Signs Temp 37.0 C 08/11/19 18:40 Pulse 77 08/11/19 18:40 Resp 16 08/11/19 18:40 BP 115/62 08/11/19 18:40 Pulse Ox 100 08/11/19 18:40 - Orders/Labs/Meds Orders: Active Orders 24 hr Category Date Time Status EKG Documentation Completion [RC] ASDIRECTED Care 08/11/19 18:54 Active Chest 1V Frontal [CR] Stat Exams 08/11/19 18:53 Taken Sodium Chloride 0.9% [Saline Flush] Med 08/11/19 18:53 Active 10 ml FLUSH ASDIRECTED PRN Peripheral IV Insertion Adult [OM.PC] Routine Oth 08/11/19 18:53 Ordered EKG 12 Lead [EK] Routine Ther 08/11/19 18:53 Ordered Medication Orders Sodium Chloride (Saline Flush) 10 ml FLUSH ASDIRECTED PRN PRN Reason: Keep Vein Open Last Admin: 08/11/19 19:21 Dose: 10 ml Labs: Laboratory Tests 08/11/19 08/11/19 08/11/19 Range/Units 19:10 19:10 19:20 WBC 11.5 (4.5-12.0) X10-3/uL RBC 5.00 (3.23-5.20) x10(6)uL Hgb 13.0 (11.5-15.5) g/dL Hct 39.8 (30.0-51.3) % MCV 79.6 L (80-96) fL MCH 26.0 L (27.7-33.6) pg MCHC 32.7 (32.2-35.4) g/dL RDW 13.8 (11.5-15.5) % Plt Count 416 H (125-369) X10(3)uL MPV 7.8 (7.4-10.4) fL Neut % (Auto) 54.7 (46-82) % Lymph % (Auto) 37.4 H (13-37) % [place] % (Auto) 4.5 (4-12) % Eos % (Auto) 2 (1.0-5.0) % Baso % (Auto) 1 (0-2) % Neut # (Auto) 6.3 (1.6-8.3) # Lymph # (Auto) 4.3 (0.6-5.0) # [place] # (Auto) 0.5 (0.0-1.3) # Eos # (Auto) 0.3 (0.0-0.8) # Baso # (Auto) 0.1 (0.0-0.2) # D-Dimer, Quantitative (0.0-0.59) mg/LFEU Sodium (135-145) mmol/L Potassium (3.5-5.3) mmol/L Chloride (100-110) mmol/L Carbon Dioxide (21-32) mmol/L BUN (7-18) mg/dL Creatinine (0.55-1.02) mg/dL Est Cr Clr Drug Dosing mL/min Estimated GFR (MDRD) (>60) BUN/Creatinine Ratio (9-20) Glucose (80-116) mg/dL Calcium (8.6-10.2) mg/dL Magnesium (1.8-2.5) mg/dL Total Bilirubin (0.1-1.3) mg/dL AST (5-25) IU/L ALT (12-36) U/L Alkaline Phosphatase (56-112) IU/L Troponin I (4.0-60.3) pg/mL C-Reactive Protein (0.5-0.9) mg/dL Total Protein (6.0-8.0) g/dL Albumin (3.5-5.2) g/dL Globulin g/dL Albumin/Globulin Ratio Urine HCG, Qual Negative (NEGATIVE) Urine Opiates Screen Negative (NEGATIVE) Ur Oxycodone Screen Negative (NEGATIVE) Ur Propoxyphene Screen Negative (NEGATIVE) Ur Barbituates Screen Negative (NEGATIVE) Ur Tricyclics Screen Negative (NEGATIVE) Ur Phencyclidine Scrn Negative (NEGATIVE) Ur Amphetamine Screen Negative (NEGATIVE) Urine MDMA Screen Negative (NEGATIVE) U Benzodiazepines Scrn Negative (NEGATIVE) U Cocaine Metab Screen Negative (NEGATIVE) U Marijuana (THC) Screen Negative (NEGATIVE) 08/11/19 08/11/19 08/11/19 Range/Units 19:20 19:20 19:20 WBC (4.5-12.0) X10-3/uL RBC (3.23-5.20) x10(6)uL Hgb (11.5-15.5) g/dL Hct (30.0-51.3) % MCV (80-96) fL MCH (27.7-33.6) pg MCHC (32.2-35.4) g/dL RDW (11.5-15.5) % Plt Count (125-369) X10(3)uL MPV (7.4-10.4) fL Neut % (Auto) (46-82) % Lymph % (Auto) (13-37) % [place] % (Auto) (4-12) % Eos % (Auto) (1.0-5.0) % Baso % (Auto) (0-2) % Neut # (Auto) (1.6-8.3) # Lymph # (Auto) (0.6-5.0) # [place] # (Auto) (0.0-1.3) # Eos # (Auto) (0.0-0.8) # Baso # (Auto) (0.0-0.2) # D-Dimer, Quantitative 0.33 (0.0-0.59) mg/LFEU Sodium 141 (135-145) mmol/L Potassium 4.0 (3.5-5.3) mmol/L Chloride 103 (100-110) mmol/L Carbon Dioxide 28 (21-32) mmol/L BUN 15 (7-18) mg/dL Creatinine 0.8 (0.55-1.02) mg/dL Est Cr Clr Drug Dosing 89.60 mL/min Estimated GFR (MDRD) > 60 (>60) BUN/Creatinine Ratio 18.8 (9-20) Glucose 96 (80-116) mg/dL Calcium 9.0 (8.6-10.2) mg/dL Magnesium 1.8 (1.8-2.5) mg/dL Total Bilirubin 0.2 (0.1-1.3) mg/dL AST 28 H (5-25) IU/L ALT 42 H (12-36) U/L Alkaline Phosphatase 77 (56-112) IU/L Troponin I < 4.0 L (4.0-60.3) pg/mL C-Reactive Protein 0.9 (0.5-0.9) mg/dL Total Protein 8.1 H (6.0-8.0) g/dL Albumin 3.8 (3.5-5.2) g/dL Globulin 4.3 g/dL Albumin/Globulin Ratio 0.9 Urine HCG, Qual (NEGATIVE) Urine Opiates Screen (NEGATIVE) Ur Oxycodone Screen (NEGATIVE) Ur Propoxyphene Screen (NEGATIVE) Ur Barbituates Screen (NEGATIVE) Ur Tricyclics Screen (NEGATIVE) Ur Phencyclidine Scrn (NEGATIVE) Ur Amphetamine Screen (NEGATIVE) Urine MDMA Screen (NEGATIVE) U Benzodiazepines Scrn (NEGATIVE) U Cocaine Metab Screen (NEGATIVE) U Marijuana (THC) Screen (NEGATIVE) Meds: Medications Generic Name Dose Route Start Last Admin Trade Name Freq PRN Reason Stop Dose Admin Sodium Chloride 10 ml 08/11/19 18:53 08/11/19 19:21 Saline Flush FLUSH 10 ml ASDIRECTED PRN Administration Keep Vein Open Discontinued Medications Generic Name Dose Route Start Last Admin Trade Name Freq PRN Reason Stop Dose Admin Ketorolac Tromethamine 30 mg 08/11/19 18:58 08/11/19 19:07 Toradol IVPUSH 08/11/19 18:59 30 mg ONETIME ONE Administration Lorazepam 1 mg 08/11/19 20:15 08/11/19 20:29 Ativan IVPUSH 08/11/19 20:16 1 mg ONETIME ONE Administration - Radiology Interpretation Free Text/Narrative:: Portable chest x-ray showed no acute disease. - Re-Assessments/Exams Free Text/Narrative Re-Assessment/Exam: 08/11/19 20:10: Patient has remained vitally stable while in the emergency department. She is still complaining of left-sided chest pain and some pain in her upper abdomen on the left side as well. Her blood tests are all reassuringly normal. Her EKG was normal. Her chest x-ray was normal. The patient does appear to still be somewhat anxious. For the patient's nausea/ stomach pain and her anxiety, I will give her Ativan 1 mg IV. She had received Toradol 30 mg IV earlier. 08/11/19 21:00: Patient is feeling somewhat improved. I will discharge the patient and recommend that she take ibuprofen and Tylenol for her pain. Her pain appears to be musculoskeletal in nature and I don't see anything serious at this point. Departure - Departure Time of Disposition: 21:15 Disposition: Home, Self-Care 01 Condition: Good Clinical Impression: Chest pain, musculoskeletal, Anxiety Instructions: Nonspecific Chest Pain, [id number], Chest Wall Pain, Easy-to- Read, Living With Anxiety Referrals: Donnie Gutierrez MD [Primary Care Provider] - Additional Instructions: Your EKG was normal. Your blood tests were all reassuringly normal. Your chest x -ray was normal. This chest pain does not appear to be anything related to your heart or to your lungs. This does not appear to be anything serious at this point. It most probably represents some inflammation and tightness in the of your chest wall. You may take ibuprofen and Tylenol as needed for pain. You should rest. You should drink plenty of fluids. You should follow-up with your primary doctor. Back to the emergency department for worse breathing, coughing up blood, unrelenting vomiting or any other concerning sign or symptom. Sepsis Event Note - Focused Exam Vital Signs: Vital Signs Temp Pulse Resp BP Pulse Ox 08/11/19 18:40 37.0 C 77 16 115/62 100 Date Exam was Performed: 08/11/19 Time Exam was Performed: 21:09 - My Orders Last 24 Hours: My Active Orders 08/11/19 18:53 Chest 1V Frontal [CR] Stat Sodium Chloride 0.9% [Saline Flush] 10 ml FLUSH ASDIRECTED PRN Peripheral IV Insertion Adult [OM.PC] Routine EKG 12 Lead [EK] Routine 08/11/19 18:54 EKG Documentation Completion [RC] ASDIRECTED - Assessment/Plan Last 24 Hours: My Active Orders 08/11/19 18:53 Chest 1V Frontal [CR] Stat Sodium Chloride 0.9% [Saline Flush] 10 ml FLUSH ASDIRECTED PRN Peripheral IV Insertion Adult [OM.PC] Routine EKG 12 Lead [EK] Routine 08/11/19 18:54 EKG Documentation Completion [RC] ASDIRECTED
[2019-08-11] MEDS ORDERED: Sodium Chloride 0.9% 10 ML Syringe FLUSH PRN (18:53)
[2019-08-11] MEDS ORDERED: Ketorolac 30 MG/ML SDV IVPUSH ONE (18:58)
[2019-08-11] MEDS ORDERED: LORazepam 2 MG/ML SDV IVPUSH ONE (20:15)
[2019-08-12 01:14] VITALS: BP 137/83; PULSE 90
--- NOTE | 2019-08-12 10:51 | CR ---
INDICATION: Chest pain. CHEST, ONE VIEW: AP upright portable view of the chest was obtained 08/11/19 - no comparisons. The heart appears to be near the upper limits of normal in size. Mediastinum and bony thorax are unremarkable. Evidence of exogenous obesity is noted. Overlying EKG leads are noted. An active infiltrate or effusion was not identified. IMPRESSION: 1. No acute process. 2. Slightly prominent heart. 3. Exogenous obesity. MTDD
== END 2019-08-11 21:21 | disposition home or self-care (01) ==
LOC: FB.ED 18:32
DX: R07.89 Other chest pain (principal); F41.9 Anxiety disorder, unspecified; F32.9 Major depressive disorder, single episode, unspecified; F17.200 Nicotine dependence, unspecified, uncomplicated; E66.9 Obesity, unspecified; Z68.39 Body mass index [BMI] 39.0-39.9, adult; Z88.5 Allergy status to narcotic agent; Z88.0 Allergy status to penicillin; Z79.899 Other long term (current) drug therapy
CPT/HCPCS: 36415; 71045; 80053; 80305-QW; 81025; 83735; 84484; 85025; 85379; 86140; 93005; 96374; 96375; 99285-25; J1885; J2060

== ENCOUNTER 2019-08-27 11:29 | Emergency (ER) | payer MEDICAID ==
[2019-08-27] MEDS ORDERED: Lidocaine 2% Viscous Solution 15 ML Cup PO ONE (12:23)
[2019-08-27] MEDS ORDERED: Ketorolac 60 MG/2 ML SDV IM ONE (12:48)
--- NOTE | 2019-08-27 13:15 | EDM.PDOC ---
ED HPI GENERAL MEDICAL PROBLEM - General Chief Complaint: ENT Problem Stated Complaint: TOOTH ACHE Time Seen by Provider: 08/27/19 11:35 Source of Information: Reports: Patient History Limitations: Reports: No Limitations - History of Present Illness INITIAL COMMENTS - FREE TEXT/NARRATIVE: Patient presented to the ED because of dental pain,9/10, over the left upper pre 6th tooth. She said her tooth broke whe she was biting hard tacos. She did try taking OTC ibuprofen and tylenol without any relief. left upper tooth Pain Score (Numeric/FACES): 9 - Related Data Allergies Allergy/AdvReac Type Severity Reaction Status Date / Time morphine Allergy Intermediate Hives, Verified 08/27/19 11:44 Nausea and Vomiting codeine Allergy Unknown Nausea and Verified 08/27/19 11:44 Vomiting tramadol HCl [From Ultram] Allergy Unknown Nausea and Verified 08/27/19 11:44 Vomiting amoxicillin [Amoxicillin] Allergy Hives Verified 08/27/19 11:44 Penicillins Allergy Hives Verified 08/27/19 11:44 Home Meds: Home Meds ClonazePAM [KlonoPIN] 0.5 mg PO BID PRN 12/09/16 [History] PARoxetine HCl [Paroxetine HCl] 40 mg PO BEDTIME 09/12/17 [History] buPROPion HCl [Wellbutrin Xl] 300 mg PO DAILY 03/31/18 [History] Gabapentin [Neurontin] 800 mg PO QID 08/11/19 [History] Acetaminophen/HYDROcodone [[place] 325-5 MG] 1 - 2 tab PO Q6H PRN #6 tab 08/27/19 [Rx] Past Medical History - Past Health History Medical/Surgical History: Denies Medical/Surgical History HEENT History: Reports: Impaired Vision, Other (See Below) Other HEENT History: wears glasses Other Cardiovascular History: Episode of chest pain. 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 Musculoskeletal Surgical History: Reports: Other (See Below) Other Musculoskeletal Surgeries/Procedures:: fatty cyst removed from back. 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.) ED ROS ENT - Review of Systems Review Of Systems: See Below Constitutional: Reports: No Symptoms HEENT: Reports: Dental Pain Respiratory: Reports: No Symptoms Cardiovascular: Reports: No Symptoms Endocrine: Reports: No Symptoms GI/Abdominal: Reports: No Symptoms : Reports: No Symptoms Musculoskeletal: Reports: No Symptoms Skin: Reports: No Symptoms Neurological: Reports: No Symptoms ED EXAM, ENT - Physical Exam Exam: See Below Exam Limited By: No Limitations General Appearance: Alert, No Apparent Distress Eye Exam: Bilateral Eye: PERRL Ears: Normal External Exam, Normal Canal, Hearing Grossly Normal, Normal TMs Nose: Normal Inspection, Normal Mucousa Mouth/Throat: Normal Inspection, Other (left upper 6th tooth with a fracture and cavities) Neck: Normal Inspection, Supple, Non-Tender Respiratory/Chest: No Respiratory Distress, Lungs Clear, Normal Breath Sounds, No Accessory Muscle Use Cardiovascular: Normal Peripheral Pulses, Regular Rate, Rhythm, No Edema, No Gallop, No JVD, No Murmur GI/Abdominal: Normal Bowel Sounds, Soft, Non-Tender, No Organomegaly Back: Normal Inspection, Full Range of Motion Extremities: Normal Inspection, Normal Range of Motion, Non-Tender, No Pedal Edema, Normal Capillary Refill Neurological: Alert, Oriented, CN II-XII Intact, Normal Cognition, Normal Gait Course - Vital Signs Text/Narrative:: viscous lidocaine applied to the left upper 6th tooth toradol 60 mg IM x1 Last Recorded V/S: Last Vital Signs Temp 36.3 C 08/27/19 13:20 Pulse 75 08/27/19 13:20 Resp 18 08/27/19 13:20 BP 113/39 L 08/27/19 13:20 Pulse Ox 98 08/27/19 13:20 - Orders/Labs/Meds Meds: Medications Discontinued Medications Generic Name Dose Route Start Last Admin Trade Name Vania PRN Reason Stop Dose Admin Ketorolac Tromethamine 60 mg 08/27/19 12:48 08/27/19 13:00 Toradol IM 08/27/19 12:49 60 mg ONETIME ONE Administration Lidocaine HCl 15 ml 08/27/19 12:23 08/27/19 12:31 Xylocaine 2% Viscous PO 08/27/19 12:24 15 ml ONETIME ONE Administration Departure - Departure Time of Disposition: 13:15 Disposition: Home, Self-Care 01 Condition: Good Clinical Impression: Fracture of tooth - Discharge Information Prescriptions: Acetaminophen/HYDROcodone [[place] 325-5 MG] 1 - 2 tab PO Q6H PRN #6 tab PRN Reason: Pain Instructions: Preventive Dental Care, Adult Referrals: Donnie Gutierrez MD [Primary Care Provider] - Forms: ED Department Discharge Additional Instructions: please read discharge instructions on dental pain gurgle with salt and water take hydrocodone 1-2 tablets with ibuprofen 800 mg every 8 hours as needed for pain follow up with your dentist this week Sepsis Event Note - Evaluation Sepsis Screening Result: No Definite Risk - Focused Exam Date Exam was Performed: 08/28/19 Time Exam was Performed: 07:59
[2019-08-27 13:29] VITALS: BP 113/39; PULSE 75
== END 2019-08-27 13:20 | disposition home or self-care (01) ==
LOC: FB.ED 11:29
DX: K03.81 Cracked tooth (principal); F41.9 Anxiety disorder, unspecified; F32.9 Major depressive disorder, single episode, unspecified; E66.9 Obesity, unspecified; F17.210 Nicotine dependence, cigarettes, uncomplicated; Z88.5 Allergy status to narcotic agent; Z88.1 Allergy status to other antibiotic agents; Z88.0 Allergy status to penicillin; Z79.899 Other long term (current) drug therapy; Z68.42 Body mass index [BMI] 45.0-49.9, adult
CPT/HCPCS: 96372; 99282; A9270; J1885

== ENCOUNTER 2019-12-05 15:26 | Emergency (ER) | payer MEDICAID ==
[2019-12-05] MEDS: Lidocaine 5% 700 MG Patch TOP ONE (16:32)
--- NOTE | 2019-12-05 16:34 | EDM.PDOC ---
ED HPI GENERAL MEDICAL PROBLEM - General Stated Complaint: R RIB PAIN Time Seen by Provider: 12/05/19 16:00 Source of Information: Reports: Patient History Limitations: Reports: No Limitations - History of Present Illness INITIAL COMMENTS - FREE TEXT/NARRATIVE: Patient presented to the ED because of right rib pain. She went biking yesterday and since then she has been having rt rib pain, shap,7/10, worse with movements and breathing. She denies any recent trauma or fall. - Related Data Allergies Allergy/AdvReac Type Severity Reaction Status Date / Time morphine Allergy Intermediate Hives, Verified 08/27/19 11:44 Nausea and Vomiting codeine Allergy Unknown Nausea and Verified 08/27/19 11:44 Vomiting tramadol HCl [From Ultram] Allergy Unknown Nausea and Verified 08/27/19 11:44 Vomiting amoxicillin [Amoxicillin] Allergy Hives Verified 08/27/19 11:44 Penicillins Allergy Hives Verified 08/27/19 11:44 Home Meds: Home Meds ClonazePAM [KlonoPIN] 0.5 mg PO BID PRN 12/09/16 [History] PARoxetine HCL [Paroxetine HCl] 40 mg PO BEDTIME 09/12/17 [History] buPROPion HCL [Wellbutrin Xl] 300 mg PO DAILY 03/31/18 [History] Gabapentin [Neurontin] 800 mg PO QID 08/11/19 [History] Acetaminophen/HYDROcodone [[place] 325-5 MG] 1 - 2 tab PO Q6H PRN #6 tab 08/27/19 [Rx] Cyclobenzaprine [Flexeril] 10 mg PO TID #15 tab 12/05/19 [Rx] Past Medical History - Past Health History Medical/Surgical History: Denies Medical/Surgical History HEENT History: Reports: Impaired Vision, Other (See Below) Other HEENT History: wears glasses Other Cardiovascular History: Episode of chest pain. 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 (See Below) Other ELECTRON BEAM OPERATOR History: pregnancies x 4 Musculoskeletal History: Reports: Back Pain, Chronic Other Musculoskeletal History: back surgery Neurological History: Reports: Headaches, Chronic Psychiatric History: Reports: Anxiety, Depression Other Psychiatric History: hx ETOH abuse, has been in tx for ETOH Endocrine/Metabolic History: Reports: Obesity/BMI 30+ - Infectious Disease History Infectious Disease History: Reports: Chicken Pox - Past Surgical History GI Surgical History: Reports: Appendectomy Female Surgical History: Reports: Section, Tubal Ligation, Other ( See Below) Other Female Surgeries/Procedures: x 4. Musculoskeletal Surgical History: Reports: Other (See Below) Other Musculoskeletal Surgeries/Procedures:: fatty cyst removed from back. 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.) ED ROS GENERAL - Review of Systems Review Of Systems: See Below Constitutional: Reports: No Symptoms HEENT: Reports: No Symptoms Respiratory: Reports: No Symptoms Cardiovascular: Reports: No Symptoms Endocrine: Reports: No Symptoms GI/Abdominal: Reports: No Symptoms : Reports: No Symptoms Musculoskeletal: Reports: Other (right rib pain) Skin: Reports: No Symptoms ED EXAM, GENERAL - Physical Exam Exam: See Below Exam Limited By: No Limitations General Appearance: Alert Eye Exam: Bilateral Eye: PERRL Nose: Normal Inspection, Normal Mucosa Throat/Mouth: Normal Inspection, Normal Lips Head: Atraumatic, Normocephalic Neck: Normal Inspection, Supple, Non-Tender Respiratory/Chest: No Respiratory Distress, Lungs Clear, Normal Breath Sounds Cardiovascular: Normal Peripheral Pulses, Regular Rate, Rhythm, No Edema GI/Abdominal: Normal Bowel Sounds, Soft, Non-Tender Back Exam: Normal Inspection, Full Range of Motion Neurological: Alert, Oriented, CN II-XII Intact Skin Exam: Warm, Dry, Intact Course - Vital Signs Text/Narrative:: CXR/Rt rib xray-neg Lidoderm patch - Orders/Labs/Meds Orders: Active Orders 24 hr Category Date Time Status Ribs 2V w Chest Rt [CR] Stat Exams 12/05/19 15:51 Taken Meds: Medications Discontinued Medications Generic Name Dose Route Start Last Admin Trade Name Freq PRN Reason Stop Dose Admin Lidocaine 700 mg 12/05/19 16:04 12/05/19 16:32 Lidoderm 5% TOP 12/05/19 16:05 700 mg ONETIME ONE Administration Departure - Departure Time of Disposition: 16:35 Disposition: Home, Self-Care 01 Condition: Good Clinical Impression: Rib pain on right side - Discharge Information Prescriptions: Cyclobenzaprine [Flexeril] 10 mg PO TID #15 tab Instructions: Chest Wall Pain, [id number] Referrals: Donnie Gutierrez MD [Primary Care Provider] - Additional Instructions: please read discharge instructions on rib pain apply ice or heat whichever makes the pain feel better take tylenol 1000 mg with flexeril 10 mg every 8 hours as needed for pain and muscle spasm follow up as needed Sepsis Event Note - Focused Exam Date Exam was Performed: 12/05/19 Time Exam was Performed: 16:36 - My Orders Last 24 Hours: My Active Orders 12/05/19 15:51 Ribs 2V w Chest Rt [CR] Stat - Assessment/Plan Last 24 Hours: My Active Orders 12/05/19 15:51 Ribs 2V w Chest Rt [CR] Stat
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
[2019-12-05 17:49] VITALS: BP 137/69; PULSE 82
== END 2019-12-05 16:40 | disposition home or self-care (01) ==
LOC: FB.ED 15:26
DX: R07.81 Pleurodynia (principal); F41.9 Anxiety disorder, unspecified; F32.9 Major depressive disorder, single episode, unspecified; E66.9 Obesity, unspecified; Z68.41 Body mass index [BMI] 40.0-44.9, adult; Z88.5 Allergy status to narcotic agent; Z88.1 Allergy status to other antibiotic agents; Z88.0 Allergy status to penicillin
CPT/HCPCS: 71101-RT; 99283; A9270-GY

== ENCOUNTER 2021-04-27 07:35 | Emergency (ER) | payer MEDICAID ==
[2021-04-27] MEDS ORDERED: Acetaminophen 500 MG Tab PO ONE (07:43)
--- NOTE | 2021-04-27 08:04 | EDM.PDOC ---
ED HPI GENERAL MEDICAL PROBLEM - General Chief Complaint: Respiratory Problem Stated Complaint: SICK,NOT FEELING WELL Time Seen by Provider: 04/27/21 07:46 Source of Information: Reports: Patient, Old Records, RN History Limitations: Reports: No Limitations - History of Present Illness INITIAL COMMENTS - FREE TEXT/NARRATIVE: 30 yo female frequent visitor to the ER presents with cough and back pain that began about 4 d ago. Has not been to the clinic. No self tx since yesterday. Had only one of the [employer] [facility] vaccines in November and none since. Lives with her mother, the mother is not yet ill. Cough is non-productive. Says it maurice when she breaths. Onset: Gradual Onset Date: 04/23/21 Duration: Day(s): (4), Getting Worse Location: Reports: Chest Quality: Reports: Burning (with breathing or coughing) Severity: Moderate Improves with: Reports: None Worsens with: Reports: Breathing, Other (time) Context: Reports: Other (See HPI) Associated Symptoms: Reports: Cough, Malaise. Denies: Fever/Chills Treatments BLOCK GREASER: Reports: Other (see below) (none) back Pain Score (Numeric/FACES): 7 - Related Data Allergies Allergy/AdvReac Type Severity Reaction Status Date / Time morphine Allergy Intermediate Hives, Verified 04/27/21 07:51 Nausea and Vomiting codeine Allergy Unknown Nausea and Verified 04/27/21 07:51 Vomiting tramadol HCl [From Ultram] Allergy Unknown Nausea and Verified 04/27/21 07:51 Vomiting amoxicillin [Amoxicillin] Allergy Hives Verified 04/27/21 07:51 Penicillins Allergy Hives Verified 04/27/21 07:51 Home Meds: Home Meds ClonazePAM [KlonoPIN] 0.5 mg PO BID PRN 12/09/16 [History] PARoxetine HCL [Paroxetine HCl] 40 mg PO BEDTIME 09/12/17 [History] buPROPion HCL [Wellbutrin Xl] 300 mg PO DAILY 03/31/18 [History] Gabapentin [Neurontin] 800 mg PO QID 08/11/19 [History] Acetaminophen/HYDROcodone [[place] 325-5 MG] 1 - 2 tab PO Q6H PRN #6 tab 08/27/19 [Rx] Cyclobenzaprine [Flexeril] 10 mg PO TID #15 tab 12/05/19 [Rx] Past Medical History - Past Health History Medical/Surgical History: Denies Medical/Surgical History HEENT History: Reports: Impaired Vision, Other (See Below) Other HEENT History: wears glasses Other Cardiovascular History: Episode of chest pain. Gastrointestinal History: Reports: None Genitourinary History: Reports: None MANAGER EVENT History: Reports: Other (See Below) Other MANAGER EVENT History: pregnancies x 4 Musculoskeletal History: Reports: Back Pain, Chronic Other Musculoskeletal History: back surgery Neurological History: Reports: Headaches, Chronic Psychiatric History: Reports: Anxiety, Depression Other Psychiatric History: hx ETOH abuse, has been in tx for ETOH Endocrine/Metabolic History: Reports: Obesity/BMI 30+ - Infectious Disease History Infectious Disease History: Reports: Chicken Pox - Past Surgical History GI Surgical History: Reports: Appendectomy Female Surgical History: Reports: Section, Tubal Ligation, Other (See Below) Other Female Surgeries/Procedures: x 4. Musculoskeletal Surgical History: Reports: Other (See Below) Other Musculoskeletal Surgeries/Procedures:: fatty cyst removed from back. 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.) ED ROS GENERAL - Review of Systems Review Of Systems: See Below Constitutional: Reports: Malaise HEENT: Reports: No Symptoms Respiratory: Reports: Cough, Other (burning in chest with breathing) Cardiovascular: Reports: No Symptoms Endocrine: Reports: No Symptoms GI/Abdominal: Reports: No Symptoms : Reports: No Symptoms Musculoskeletal: Reports: No Symptoms Skin: Reports: No Symptoms ED EXAM, GENERAL - Physical Exam Exam: See Below Exam Limited By: No Limitations General Appearance: Alert, WD/WN, No Apparent Distress Eye Exam: Bilateral Eye: Normal Inspection Ears: Normal External Exam, Normal Canal, Hearing Grossly Normal, Normal TMs Ear Exam: Bilateral Ear: Auricle Normal, Canal Normal, TM normal Nose: Normal Inspection, No Blood Throat/Mouth: Normal Inspection, Normal Lips, Normal Oropharynx, Normal Voice, No Airway Compromise Head: Atraumatic, Normocephalic Neck: Normal Inspection Respiratory/Chest: No Respiratory Distress, Lungs Clear, Normal Breath Sounds, No Accessory Muscle Use, Other (frequent harsh cough) Cardiovascular: Regular Rate, Rhythm, No Edema Extremities: Normal Inspection Neurological: Alert, Oriented, CN II-XII Intact, Normal Cognition, No Motor/Sensory Deficits Psychiatric: Normal Affect, Normal Mood Skin Exam: Warm, Dry, Intact, Normal Color, No Rash Course - Vital Signs Last Recorded V/S: Last Vital Signs Temp 36.8 C 04/27/21 07:38 Pulse 119 H 04/27/21 07:38 Resp 20 04/27/21 07:38 BP 144/97 H 04/27/21 07:38 Pulse Ox 98 04/27/21 07:38 - Orders/Labs/Meds Orders: Active Orders 24 hr Category Date Time Status CBC WITH AUTO DIFF [HEME] Stat Lab 04/27/21 08:10 Results Labs: Laboratory Tests 04/27/21 04/27/21 Range/Units 07:42 08:10 WBC 5.7 (3.0-10.3) x10-3/uL RBC 5.28 H (3.60-5.20) x10(6)uL Hgb 14.0 (11.4-15.5) g/dL Hct 43.2 (34.2-48.2) % MCV 81.9 (76.7-100.5) fL MCH 26.6 (23.9-33.9) pg MCHC 32.5 (31.9-34.8) g/dL RDW 14.7 (12.3-16.5) % Plt Count 238 (151-488) x10(3)uL MPV 7.9 (7.1-12.4) fL Add Manual Diff Yes SARS-CoV-2 RNA (HETAL) Positive H (NEGATIVE) Meds: Medications Discontinued Medications Generic Name Dose Route Start Last Admin Trade Name Vania PRN Reason Stop Dose Admin Acetaminophen 1,000 mg 04/27/21 07:43 04/27/21 07:51 Acetaminophen 500 Mg Tab PO 04/27/21 07:44 1,000 mg ONETIME ONE Administration Departure - Departure Time of Disposition: 08:42 Disposition: Home, Self-Care 01 Condition: Fair Clinical Impression: COVID-19 - Discharge Information *PRESCRIPTION DRUG MONITORING PROGRAM REVIEWED*: Not Applicable *COPY OF PRESCRIPTION DRUG MONITORING REPORT IN PATIENT SONI: Not Applicable Instructions: COVID-19 Frequently Asked Questions, Symptoms of COVID-19 - CDC (08/23/2020) Referrals: PCP,Unknown [Primary Care Provider] - Forms: ED Department Discharge Additional Instructions: Take acetaminophen 1000 mg every 6 hrs for pain and fever control. Isolate yourself for the next week to prevent spread. Take Robitussin DM per package instructions for cough. Rest. Use a cool mist humidifier. Consider taking zinc 25-50 mg daily to boost your immune system and take Vitamin D 4769-7735 U daily. F/U in the clinic as needed. Sepsis Event Note (ED) - Focused Exam Vital Signs: Vital Signs Temp Pulse Resp BP Pulse Ox 04/27/21 07:38 36.8 C 119 H 20 144/97 H 98 - My Orders Last 24 Hours: My Active Orders 04/27/21 08:10 CBC WITH AUTO DIFF [HEME] Stat - Assessment/Plan Last 24 Hours: My Active Orders 04/27/21 08:10 CBC WITH AUTO DIFF [HEME] Stat
[2021-04-27 09:07] VITALS: BP 112/83; PULSE 120
== END 2021-04-27 09:15 | disposition home or self-care (01) ==
LOC: FB.ED 07:35
DX: U07.1 COVID-19 (principal); E66.9 Obesity, unspecified; Z88.5 Allergy status to narcotic agent; Z88.0 Allergy status to penicillin; Z79.899 Other long term (current) drug therapy
CPT/HCPCS: 36415; 85025; 87635; 99283; A9270; U0002